=== PATIENT | female | born 1960 | race Caucasian/White ===

== ENCOUNTER → 2016-12-17 | Outpatient (CLI) | payer BC ==
[~2016-12-17] MED LIST: FEOSOL PO
[2016-12-17 17:32] LABS: BASO % 0.4 %; BASO ABS # 0.03 K/uL (0-0.2); COMPLETE YES; EOS % 1.3 %; IG% 0.1 %; LYMPH % 33.4 %; LYMPH ABS # 2.35 K/uL (1.2-3.4); MEAN CELL VOLUME 88.8 fL (80-100); MEAN CORPUSCULAR HEMOGLOBIN 29.1 pg (25-34); MEAN CORPUSCULAR HGB CONC 32.8 g/dl (32-36); MEAN PLATELET VOLUME 12.6 fL (7.4-10.4); MONO % 6.7 %; NEUT % 58.1 %; PLATELET COUNT 205 K/uL (130-400); RED BLOOD COUNT 4.84 M/uL (4.2-5.4); WHITE BLOOD COUNT 7.03 K/uL (4.8-10.8)
[2016-12-17 17:42] LABS: ALT/SGPT 20 U/L (12-78); BLOOD UREA NITROGEN 25 mg/dl (7-18); BUN/CREATININE RATIO 81.6 (10-20); CALCIUM 9.5 mg/dl (8.5-10.1); CARBON DIOXIDE 25 mmol/L (21-32); CHLORIDE 108 mmol/L (98-107); CHOLESTEROL 202 mg/dl (0-200); CREATININE 0.31 mg/dl (0.60-1.20); GLUCOSE 78 mg/dl (70-99); POTASSIUM 3.9 mmol/L (3.5-5.1); SODIUM 141 mmol/L (136-145)
[2016-12-17 17:45] LABS: ALB/GLOB RATIO 0.8 (0.9-2); ALKALINE PHOSPHATASE 104 U/L (45-117); AST/SGOT 21 U/L (15-37); CHOLESTEROL/HDL RATIO 3.9; HDL CHOLESTEROL 52 mg/dl; LDL CHOLESTEROL CALCULATED 129 mg/dl; TRIGLYCERIDES 105 mg/dl (0-150); VERY LOW DENSITY LIPOPROT CALC 21 mg/dl
== END | disposition home or self-care (01) ==
LOC: C.LABPVFM 13:42
PROVIDERS: ATTEND Family Medicine
DX: Z13.220 Encounter for screening for lipoid disorders (principal); Z13.1 Encounter for screening for diabetes mellitus

== ENCOUNTER 2020-12-11 09:55 | Observation (INO) ==
[2020-12-11] MEDS ORDERED: SODIUM CHLORIDE 0.9% 1000ML 1,000 ML IV STA (10:12)
[2020-12-11] MEDS ORDERED: ONDANSETRON INJ 2 MG/ML 2 ML VIAL IV STA (10:12)
--- NOTE | 2020-12-11 10:21 | Emergency Department Note ---
Impression & Plan Hydronephrosis, S/P ureteral stent placement, Left sided abdominal pain, Urinary tract infection ED Provider Note NAME: KAILYN DE ANDA AGE: 60 SEX: F : 1960 ARRIVES VIA: Ambulance INFORMANT: Patient, ED PROVIDER(S): Min Banks DO CHIEF COMPLAINT: Left flank pain HPI: The patient is a 60-year-old female who presented to the emergency department by ambulance for left-sided abdominal pain. The patient was recently diagnosed with a right-sided kidney stone. She does have a stent in her right ureter. She states that she started having left-sided abdominal pain today. She started noticing sharp pain and having difficulty urinating. She notices a little bit of dark urine but no blood in her urine. She is had nausea but no vomiting. She called the ambulance when her pain became severe. She notices no chest pain. She does not notice any difficulty breathing at this time. She has been compliant with all of her usual outpatient medications. Her pain was moderate to severe and only mildly improved at this time. She has not had any recent trauma. The patient is scheduled to see urology in follow-up for stent removal. ROS: See above HPI for pertinent positives & negatives. A total of 10 systems reviewed and were otherwise negative. PAST MEDICAL HISTORY: See Below PAST SURGICAL HISTORY: See Below FAMILY HISTORY: See Below SOCIAL HISTORY: See Below HOME MEDICATIONS: See Below ALLERGIES: See Below VITALS: See Below PHYSICAL EXAMINATION: GENERAL: The patient is awake and alert. The patient is very anxious appearing. EYES: The conjunctivae are clear. The pupils are round and reactive. EARS, NOSE, MOUTH AND THROAT: The nose is without any evidence of any deformity. NECK: The neck is nontender and supple. RESPIRATORY: Normal respiratory effort is noted there is no evidence of wheezing rhonchi or rales CARDIOVASCULAR: Regular rate and rhythm noted there no murmurs rubs or gallops normal S1 normal S2. GASTROINTESTINAL: The abdomen is moderately distended and diffusely tender. There is no specific guarding but pain is significant in the left lower quadra nt. MUSCULOSKELETAL/EXTREMITIES: There is no evidence of gross deformity full range of motion is noted in the hips and shoulders. SKIN: Skin was warm and dry. There is no significant pedal edema. NEUROLOGIC: Patient is awake alert and oriented x3. MEDICAL DECISION MAKING: The patient is a 60-year-old female who presented to the emergency department for an evaluation of left lower quadrant abdominal pain. The patient had worsening pain on the left side. She does have pain with palpation. She was recently diagnosed with a right-sided kidney stone and has a ureteral stent in place. The patient was found to have signs of hydronephrosis on the right. The patient was also found to have signs of hydronephrosis on the left but no ureteral calculus. The patient's urinalysis does appear to be consistent with urine infection. The patient was treated with IV fluids and IV antibiotics. She was also treated with IV pain medication. She was reevaluated multiple times. On subsequent reevaluation she was feeling significantly improved. I discussed the patient's laboratory and radiographic studies with her. I discussed her case with the patient's primary urology group. I also discussed her case with the [facility] hospitalist. Triage Nursing notes reviewed. Prior medical records reviewed Vital Signs: reviewed and remarkable for elevated blood pressure. Differential diagnosis: Renal colic, UTI, appendicitis, diverticulitis, mesenteric ischemia, aortic pathology, infections, inflammatory bowel disease, PUD, biliary pathology, as well as other pathologies. ER treatment provided: See below Diagnostics interpreted by me: ECG: none Cardiac Monitoring: An order was placed for continuous cardiac monitoring. The monitor shows a rate of 80 bpm with sinus rhythm. Laboratory studies: As stated above and show below. Imaging studies: See below Consultation(s): 1330: I discussed this case with M[facility] who is on-call with urology. They will evaluate the patient in consultation. I discussed this case with Dr. Arce who is on-call for the [facility] hospitalist group. 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, cannot bear weight (has had significant deterioration in mobility/+ atrophy over past few years) Ureter, stricture Urinary incontinence Surgical History History of partial hysterectomy History of tubal ligation Family History Brother Colorectal cancer Diabetes Hypertension Father Cardiac disorder Hypertension Prostate cancer Heart disease Kidney stone Sister Diabetes Gallbladder disease Mother Cancer Pancreatic Denies family history of Ovarian cancer Kidney disease Myocardial infarction Breast cancer Social History Smoking Status: Never smoker Second Hand Exposure: No; Hx Alcohol Use: No Hx Substance Use: No Preferred Language: Albanian Communication Ability: Effective Visual Impairment: No Limitations Hearing Ability: Normal [employer]irect [employer] Required: No Beliefs That Will Affect Care: None marital status: current occupational status: retired How many Children do You have: 1 Feels Safe at Home: Yes Assistive Devices: Glasses and Wheelchair Allergies Allergies Allergy/AdvReac Type Severity Reaction Status Date / Time No Known Allergies Allergy Mild Verified 12/11/20 11:15 Home Meds Home Medications Medication Instructions Recorded Confirmed aspirin 81 mg PO QAM PRN 10/30/20 12/11/20 ibuprofen [Advil] 200 mg PO Q6H PRN 12/11/20 12/11/20 Previous Rx's Medication Instructions Recorded wheelchair #1 ea 12/20/18 cephalexin 500 mg PO BID 7 Days #14 cap 12/08/20 phenazopyridine [Pyridium] 200 mg PO Q8H PRN #10 tab 12/08/20 tamsulosin 0.4 mg PO HS #30 cap 12/08/20 Results & Data (ED) Vital Signs Vital Signs - 24 hr 12/11/20 10:12 12/11/20 11:00 12/11/20 11:42 Temperature 36.6 C Temperature Source Oral Pulse Rate 79 Pulse Rate [Apical] 80 81 Pulse Rhythm Regular Pulse Rhythm [Apical] Regular Pulse Strength Normal Respiratory Rate 23 16 14 Respiratory Effort / Characteristics Non-Labored Spontaneous Non-Labored Non-Labored Respiratory Depth Normal Normal Normal Respiratory Pattern Regular Blood Pressure 173/124 H Blood Pressure [Right Arm] 173/124 H 163/96 H Blood Pressure Mean 140 Blood Pressure Mean [Right Arm] 140 118 Blood Pressure Position Lying Pulse Oximetry 97 97 98 Oxygen Delivery Method Room Air Room Air Room Air Sepsis Recent Fever Within 48 Hours No Sepsis New/Unexplained Change in Mental Status N/A Sepsis Action Taken by Nursing No Action Required 12/11/20 12:00 12/11/20 13:00 12/11/20 14:00 Temperature 37 C Temperature Source Oral Pulse Rate Pulse Rate [Apical] 85 76 74 Pulse Rhythm Pulse Rhythm [Apical] Regular Regular Pulse Strength Respiratory Rate 16 14 16 Respiratory Effort / Characteristics Non-Labored Non-Labored Non-Labored Respiratory Depth Normal Normal Normal Respiratory Pattern Blood Pressure Blood Pressure [Right Arm] 163/96 H 156/107 H 171/96 H Blood Pressure Mean Blood Pressure Mean [Right Arm] 118 123 121 Blood Pressure Position Pulse Oximetry 98 98 99 Oxygen Delivery Method Room Air Room Air Room Air Sepsis Recent Fever Within 48 Hours Sepsis New/Unexplained Change in Mental Status Sepsis Action Taken by Nursing 12/11/20 15:00 Temperature Temperature Source Pulse Rate Pulse Rate [Apical] 71 Pulse Rhythm Pulse Rhythm [Apical] Regular Pulse Strength Respiratory Rate 16 Respiratory Effort / Characteristics Non-Labored Respiratory Depth Normal Respiratory Pattern Blood Pressure Blood Pressure [Right Arm] 154/109 H Blood Pressure Mean Blood Pressure Mean [Right Arm] 124 Blood Pressure Position Pulse Oximetry 100 Oxygen Delivery Method Room Air Sepsis Recent Fever Within 48 Hours Sepsis New/Unexplained Change in Mental Status Sepsis Action Taken by [facility] Medications Current Medication List: was personally reviewed by me Laboratory Data Attestation: I reviewed the patient's lab results. Result diagrams: 12/11/20 10:15 12/11/20 10:15 Lab Results 12/11/20 12/11/20 12/11/20 Range/Units 10:15 10:15 12:30 WBC 12.28 H (4.8-10.8) K/uL RBC 4.31 (4.2-5.4) M/uL Hgb 13.0 (12.0-16.0) g/dL Hct 38.4 (37-47) % MCV 89.1 (80-100) fL MCH 30.2 (25-34) pg MCHC 33.9 (32-36) g/dL RDW Std Deviation 42.7 (36.4-46.3) fL RDW Coeff of Casey 13.0 (11.5-14.5) % Plt Count 201 (130-400) K/uL MPV 12.4 H (7.4-10.4) fL Immature Gran % (Auto) 0.5 % Neut % (Auto) 86.4 % Lymph % (Auto) 7.5 % Fountain % (Auto) 5.3 % Eos % (Auto) 0.1 % Baso % (Auto) 0.2 % Neut # (Auto) 10.62 H (1.4-6.5) K/uL Lymph # (Auto) 0.92 L (1.2-3.4) K/uL Fountain # (Auto) 0.65 H (0.11-0.59) K/uL Eos # (Auto) 0.01 (0-0.5) K/uL Baso # (Auto) 0.02 (0-0.2) K/uL Immature Gran # (Auto) 0.06 H (0.00-0.02) K/uL Sodium 138 (136-145) mmol/L Potassium 3.2 L (3.5-5.1) mmol/L Chloride 107 (98-107) mmol/L Carbon Dioxide 24 (21-32) mmol/L Anion Gap 7.0 (3-11) BUN 24 H (7-18) mg/dl Creatinine 0.30 L (0.6-1.2) mg/dl Est Cr Clr Drug Dosing Not Reportable Est GFR ( Amer) 142.2 ml/min Est GFR (Non-Af Amer) 122.7 ml/min BUN/Creatinine Ratio 80.5 H (10-20) Glucose 114 H (70-99) mg/dl Calcium 8.7 (8.5-10.1) mg/dl Total Bilirubin 0.6 (0.2-1) mg/dl AST 25 (15-37) U/L ALT 19 (12-78) U/L Alkaline Phosphatase 98 (45-117) U/L Total Protein 7.4 (6.4-8.2) gm/dl Albumin 3.3 L (3.4-5.0) gm/dl Globulin 4.1 H (2.5-4.0) gm/dl Albumin/Globulin Ratio 0.8 L (0.9-2) Lipase 122 (73-393) U/L Urine Color Moore Urine Appearance Cloudy A (Clear) Urine pH (4.5-7.5) Ur Specific [place] 1.010 (1.000-1.030) Urine Protein (Negative) Urine Glucose (UA) (Negative) Urine Ketones (Negative) Urine Blood (Negative) Urine Nitrite (Negative) Urine Bilirubin (Negative) Urine Urobilinogen (Negative) Ur Leukocyte Esterase (Negative) Urine RBC >30 H (0-4) /hpf Urine WBC >30 H (0-5) /hpf Ur Epithelial Cells 10-20 H (0-5) /lpf Urine Bacteria Negative (Negative) COVID-19 Eval Order SARS-CoV-2 (PCR) (Negative) 12/11/20 12/11/20 Range/Units 13:15 13:15 WBC (4.8-10.8) K/uL RBC (4.2-5.4) M/uL Hgb (12.0-16.0) g/dL Hct (37-47) % MCV (80-100) fL MCH (25-34) pg MCHC (32-36) g/dL RDW Std Deviation (36.4-46.3) fL RDW Coeff of Casey (11.5-14.5) % Plt Count (130-400) K/uL MPV (7.4-10.4) fL Immature Gran % (Auto) % Neut % (Auto) % Lymph % (Auto) % [place] % (Auto) % Eos % (Auto) % Baso % (Auto) % Neut # (Auto) (1.4-6.5) K/uL Lymph # (Auto) (1.2-3.4) K/uL [place] # (Auto) (0.11-0.59) K/uL Eos # (Auto) (0-0.5) K/uL Baso # (Auto) (0-0.2) K/uL Immature Gran # (Auto) (0.00-0.02) K/uL Sodium (136-145) mmol/L Potassium (3.5-5.1) mmol/L Chloride (98-107) mmol/L Carbon Dioxide (21-32) mmol/L Anion Gap (3-11) BUN (7-18) mg/dl Creatinine (0.6-1.2) mg/dl Est Cr Clr Drug Dosing Est GFR ( Amer) ml/min Est GFR (Non-Af Amer) ml/min BUN/Creatinine Ratio (10-20) Glucose (70-99) mg/dl Calcium (8.5-10.1) mg/dl Total Bilirubin (0.2-1) mg/dl AST (15-37) U/L ALT (12-78) U/L Alkaline Phosphatase (45-117) U/L Total Protein (6.4-8.2) gm/dl Albumin (3.4-5.0) gm/dl Globulin (2.5-4.0) gm/dl Albumin/Globulin Ratio (0.9-2) Lipase (73-393) U/L Urine Color Urine Appearance (Clear) Urine pH (4.5-7.5) Ur Specific [place] (1.000-1.030) Urine Protein (Negative) Urine Glucose (UA) (Negative) Urine Ketones (Negative) Urine Blood (Negative) Urine Nitrite (Negative) Urine Bilirubin (Negative) Urine Urobilinogen (Negative) Ur Leukocyte Esterase (Negative) Urine RBC (0-4) /hpf Urine WBC (0-5) /hpf Ur Epithelial Cells (0-5) /lpf Urine Bacteria (Negative) COVID-19 Eval Order Covid19 at [facility] SARS-CoV-2 (PCR) NEGATIVE (Negative) Administered Medications Discontinued Medications Fentanyl Citrate (Fentanyl Citrate 100 Mcg/2 Ml Vial) 50 mcg IV Q15M PRN PRN Reason: Pain Stop: 12/25/20 10:11 Last Admin: 12/11/20 15:42 Dose: 50 mcg Documented by: [id number] Admin: 12/11/20 12:37 Dose: 50 mcg Documented by: [id number] Admin: 12/11/20 10:36 Dose: 50 mcg Documented by: [id number] Sodium Chloride (Nss 1000ml) 1,000 mls @ 999 mls/hr IV .Q1H1M STA Stop: 12/11/20 11:12 Last Infusion: 12/11/20 14:05 Dose: 0 mls/hr Documented by: [id number] Admin: 12/11/20 10:35 Dose: 999 mls/hr Documented by: [id number] Promethazine HCl (Phenergan) 12.5 mg in 50.5 mls @ 202 mls/hr IV NOW STA Stop: 12/11/20 12:44 Last Infusion: 12/11/20 13:12 Dose: 0 mls/hr Documented by: [id number] Admin: 12/11/20 12:38 Dose: 202 mls/hr Documented by: [id number] Ceftriaxone Sodium (Rocephin) 1,000 mg in 50 mls @ 100 mls/hr IV NOW STA Stop: 12/11/20 13:29 Last Infusion: 12/11/20 13:42 Dose: 0 mls/hr Documented by: [id number] Admin: 12/11/20 13:08 Dose: 100 mls/hr Documented by: [id number] Ondansetron HCl (Ondansetron Inj 2 Mg/Ml 2 Ml Vial) 4 mg IV NOW STA Stop: 12/11/20 10:13 Last Admin: 12/11/20 10:36 Dose: 4 mg Documented by: [id number] Potassium Chloride (Potassium Chloride Crtab 20 Meq Tabcr) 40 meq PO NOW STA Stop: 12/11/20 15:09 Last Admin: 12/11/20 15:27 Dose: 40 meq Documented by: [id number] Imaging Data Radiologist's Impression: Abdomen/Pelvis CT 12/11/20 10:21 CT SCAN OF THE ABDOMEN AND PELVIS WITHOUT CONTRAST CLINICAL HISTORY: left flank pain COMPARISON STUDY: 10/30/2020 TECHNIQUE: CT scan of the abdomen and pelvis was performed from the lung bases to the proximal femurs. Images are reviewed in the axial, sagittal, and coronal planes. IV contrast was not administered for this examination. A dose lowering technique was utilized adhering to the principles of ALARA. CT DOSE: 547.71 mGycm FINDINGS: Lower chest: There is mild left basilar atelectasis Liver: The unenhanced liver is normal in size, contour, and attenuation. There is no intrahepatic biliary ductal dilatation. Gallbladder: Cholelithiasis Spleen: Normal in size and attenuation. Pancreas: Unremarkable. Adrenal glands: Unremarkable. Kidneys: There is interval development of left-sided hydronephrosis with left- sided perinephric fluid. There is mild left-sided hydroureter. No obstructing c alculi are visualized. There is persistent right-sided hydronephrosis. There has been interval placement of a double pigtail right-sided nephroureteral stent. No right ureteral calculi are visualized. No bladder calculi are evident. Bowel: There are no transition zones indicate bowel obstruction. There is colonic diverticulosis. There is no evidence of acute appendicitis. There is no evidence of acute diverticulitis Multiple rounded filling defects within the colon, likely represent enteric. Peritoneum: There is no intraperitoneal free air or abdominal ascites. Vasculature: The abdominal aorta is normal in course and caliber. Adenopathy: None. Pelvic viscera: The uterus appears surgically absent. Skeletal structures: There is diffuse muscular atrophy. IMPRESSION: 1. Right-sided hydronephrosis with interval insertion of a right-sided double pigtail nephroureteral stent 2. Interval development of moderate left-sided hydronephrosis and hydroureter with left perinephric fluid. 3. No renal, ureteral, or bladder calculi identified. 4. No evidence of bowel obstruction. No evidence of free air. 5. Cholelithiasis 6. Diffuse muscular atrophy ACT 112: Negative or not required by law. Electronically signed by: Dennis Ricketts M.D. 12/11/2020 11:04 AM Discharge Plan Visit Data Chief Complaint: Abdominal Pain Stated Complaint: AB PAIN ED Provider: Min Banks Discharge Problem: Hydronephrosis, S/P ureteral stent placement, Left sided abdominal pain, Urinary tract infection Patient Disposition: Admitted As Inpatient Condition: Good Discharge Instructions Interventions: ED Discharge Assessment Last Done: 12/11/20 15:49 Discharge Problem: Hydronephrosis Qualifiers: Hydronephrosis type: unspecified Qualified Code(s): N13.30 - Unspecified hydronephrosis Urinary tract infection Qualifiers: Urinary tract infection type: site unspecified Hematuria presence: with hematuria Qualified Code(s): N39.0 - Urinary tract infection, site not specified
[2020-12-11 10:26] LABS: Basophils # (auto) 0.02 K/uL (0-0.2); Basophils % (auto) 0.2 %; Eosinophils # (auto) 0.01 K/uL (0-0.5); Eosinophils % (auto) 0.1 %; Hematocrit (blood only) 38.4 % (37-47); Immature Granulocytes # (auto) 0.06 K/uL (0.00-0.02); Immature Granulocytes % (auto) 0.5 %; Lymphocytes # (auto) 0.92 K/uL (1.2-3.4); Lymphocytes % (auto) 7.5 %; Mean Corpuscular Hemoglobin 30.2 pg (25-34); Mean Corpuscular Hgb Conc 33.9 g/dL (32-36); Mean Corpuscular Volume 89.1 fL (80-100); Mean Platelet Volume 12.4 fL (7.4-10.4); Monocytes # (auto) 0.65 K/uL (0.11-0.59); Monocytes % (auto) 5.3 %; Neutrophils # (auto) 10.62 K/uL (1.4-6.5); Neutrophils % (auto) 86.4 %; Platelet Count 201 K/uL (130-400); RDW Standard Deviation 42.7 fL (36.4-46.3); Red Blood Count 4.31 M/uL (4.2-5.4); White Blood Count 12.28 K/uL (4.8-10.8)
[2020-12-11] MEDS: fentaNYL citrate 100 MCG/2 ML VIAL IV PRN ×3 (10:36→15:42)
[2020-12-11 10:49] LABS: Alanine Aminotransferase 19 U/L (12-78); Albumin Level 3.3 gm/dl (3.4-5.0); Aspartate Aminotransferase 25 U/L (15-37); BUN Creatinine Ratio 80.5 (10-20); Blood Urea Nitrogen 24 mg/dl (7-18); Calcium 8.7 mg/dl (8.5-10.1); Carbon Dioxide 24 mmol/L (21-32); Chloride 107 mmol/L (98-107); Est GFR (African American) 142.2 ml/min; Est GFR (Non-African American) 122.7 ml/min; Glucose 114 mg/dl (70-99); Lipase 122 U/L (73-393); Potassium 3.2 mmol/L (3.5-5.1); Sodium 138 mmol/L (136-145)
[2020-12-11 10:51] LABS: Albumin Globulin Ratio 0.8 (0.9-2); Alkaline Phosphatase 98 U/L (45-117); Bilirubin,Total 0.6 mg/dl (0.2-1); Globulin 4.1 gm/dl (2.5-4.0); Total Protein 7.4 gm/dl (6.4-8.2)
--- NOTE | 2020-12-11 11:05 | CT Scan Report ---
CT SCAN OF THE ABDOMEN AND PELVIS WITHOUT CONTRAST CLINICAL HISTORY: left flank pain COMPARISON STUDY: 10/30/2020 TECHNIQUE: CT scan of the abdomen and pelvis was performed from the lung bases to the proximal femurs . Images are reviewed in the axial, sagittal, and coronal planes. IV contrast was not administered fo r this examination. A dose lowering technique was utilized adhering to the principles of ALARA. CT DOSE: 547.71 mGycm FINDINGS: Lower chest: There is mild left basilar atelectasis Liver: The unenhanced liver is normal in size, contour, and attenuation. There is no intrahepatic yu iary ductal dilatation. Gallbladder: Cholelithiasis Spleen: Normal in size and attenuation. Pancreas: Unremarkable. Adrenal glands: Unremarkable. Kidneys: There is interval development of left-sided hydronephrosis with left-sided perinephric fluid . There is mild left-sided hydroureter. No obstructing calculi are visualized. There is persistent ri ght-sided hydronephrosis. There has been interval placement of a double pigtail right-sided nephroure teral stent. No right ureteral calculi are visualized. No bladder calculi are evident. Bowel: There are no transition zones indicate bowel obstruction. There is colonic diverticulosis. The re is no evidence of acute appendicitis. There is no evidence of acute diverticulitis Multiple rounde d filling defects within the colon, likely represent enteric. Peritoneum: There is no intraperitoneal free air or abdominal ascites. Vasculature: The abdominal aorta is normal in course and caliber. Adenopathy: None. Pelvic viscera: The uterus appears surgically absent. Skeletal structures: There is diffuse muscular atrophy. IMPRESSION: 1. Right-sided hydronephrosis with interval insertion of a right-sided double pigtail nephroureteral stent 2. Interval development of moderate left-sided hydronephrosis and hydroureter with left perinephric f luid. 3. No renal, ureteral, or bladder calculi identified. 4. No evidence of bowel obstruction. No evidence of free air. 5. Cholelithiasis 6. Diffuse muscular atrophy ACT 112: Negative or not required by law. Electronically signed by: Dennis Ricketts M.D. 12/11/2020 11:04 AM
[2020-12-11] MEDS ORDERED: PROMETHAZINE 12.5 MG/50.5 ML BAG IV STA (12:30)
[2020-12-11 12:47] LABS: Appearance Urine Cloudy (Clear); Color Urine Orange
[2020-12-11 12:50] LABS: Bacteria Urine Negative (Negative); RBC Urine >30 /hpf (0-4); WBC Urine >30 /hpf (0-5)
[2020-12-11] MEDS ORDERED: cefTRIAXone SODIUM 1,000 MG/50 ML BAG IV STA (13:00)
--- NOTE | 2020-12-11 14:42 | History & Physical Report ---
Date of Service December 11, 2020 Assessment & Plan (1) Hydronephrosis of left kidney: Interval development since procedure on 12/08- likely with pyelonephritis - Ceftriaxone 2gm IV daily - IVF LR at 100ml/ hour - Continue with Tamsulosin 0.4mg - Continue with antiemetics - Tiered pain control- Toradol 15mg IV q6 prn, Percocet 5/325 q4 prn, morphine for severe pain IV PRN - Purewick for urinary colletcion/monitoring - Urology consult placed Imaging results: 1. Right-sided hydronephrosis with interval insertion of a right-sided double pigtail nephroureteral stent 2. Interval development of moderate left-sided hydronephrosis and hydroureter with left perinephric fluid. 3. No renal, ureteral, or bladder calculi identified. 4. No evidence of bowel obstruction. No evidence of free air. 5. Cholelithiasis 6. 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 Patient was evaluated by Urology in early December 01 for incidental imaging findings with possible obstruction with hydronephrosis and left renal colic with hematuria, the patient underwent a cystoscopy, b ilateral retrograde pyelogram and placement of right ureteral stent, ureteroscopy and right ureteral dilation. Patient recovered from that procedure and was discharged to home with Cephalexin 500mg PO BID, pyridium, and tamsulosin. Patient reports that she originally was feeling well but was awoken this morning around 0330 with sharp constant abdominal pain and the left flank pain. She got up and was unable to void but did have a bout of emesis. She called her friend and due to her pain and abdominal distention she called EMS to bring her to the hospital. In the EMD she was provided pain control and had a CT scan of her abdomen performed. CT of the abdomen reveals interval development of left-sided hydronephrosis with let-sided perinephric fluid and left sided hydroureter. The right sided hydronephrosis remains with stent placement. She also had a UA performed with recent instrumentation and stent, plus pyridium use makes acute interpretation difficult. Patient will be admitte d, with IVF hydration, NPO, Urology consult and IV antibiotics, and tiered pain regimen. Patient has muscular dystrophy and is wheel chair bound, but reports she has had a decline in her functional status over this past year. Allergies Allergy/AdvReac Type Severity Reaction Status Date / Time No Known Allergies Allergy Mild Verified 12/11/20 11:15 Home Medications Medication Instructions Recorded Confirmed Type wheelchair #1 ea 12/20/18 12/11/19 Rx aspirin 81 mg PO QAM PRN 10/30/20 12/11/20 History cephalexin 500 mg PO BID 7 Days #14 cap 12/08/20 12/11/20 Rx phenazopyridine [Pyridium] 200 mg PO Q8H PRN #10 tab 12/08/20 12/11/20 Rx tamsulosin 0.4 mg PO HS #30 cap 12/08/20 12/11/20 Rx ibuprofen [Advil] 200 mg PO Q6H PRN 12/11/20 12/11/20 History 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, cannot bear weight (has had significant deterioration in mobility/+ atrophy over past few years) Ureter, stricture Urinary incontinence Surgical History History of partial hysterectomy History of tubal ligation Family History Brother Colorectal cancer Diabetes Hypertension Father Cardiac disorder Hypertension Prostate cancer Heart disease Kidney stone Sister Diabetes Gallbladder disease Mother Cancer Pancreatic Denies family history of Ovarian cancer Kidney disease Myocardial infarction Breast cancer Social History Smoking Status: Never smoker Second Hand Exposure: No; Hx Alcohol Use: Yes Alcohol type: beer Hx Substance Use: No Preferred Language: Guatemalan Communication Ability: Effective Visual Impairment: No Limitations Hearing Ability: Normal Multimedia Designer Required: No Beliefs That Will Affect Care: None marital status: Current Living Situation: Family Current Living Situation Comment: son is caregiver current occupational status: retired How many Children do You have: 1 Feels Safe at Home: Yes Assistive Devices: Slide Board Review of Systems Review of Systems: REVIEW OF SYSTEMS: Constitutional: (+) fever, chills Eyes: No diplopia, no worsening or blurred vision ENT: normal hearing, no trouble swallowing Respiratory: No cough, sputum, dyspnea at rest or on exertion Cardiovascular: No chest pain, tightness or palpitations Abdomen: (+) pain, nausea, vomiting, (-) diarrhea or constipation Musculoskeletal: No joint pain, calf pain, swelling Neurologic: (+) weakness, wheelchair dependant, muscular dystrophy Psychiatric: No anxiety or depression Skin: No rash or itch Physical Exam Physical Exam: PHYSICAL EXAM: General: awake, alert, no apparent distress Head: Normocephalic, atraumatic ENT: PERRL, EOMI, no pharyngeal exudate, mucous membranes moist Neuro: AAO x 3, speech clear and appropriate, strength intact bilaterally 5/5, sensation intact and equal all extremities and dermatomes, no pronator drift Chest: equal rise and fall of the chest, no accessory muscle use, no heaves or thrills, Clear to auscultation, on room air, Cardiac: Regular rate and rhythm, telemetry reviewed, skin warm dry, cap refill <3 seconds, peripheral pulses +2 no JVD, no murmur, no edema GI: NABS x 4 quadrants, softly distended with tympany to percussion throughout, tender to palpation left>right, no rebound, guarding : Spontaneously voiding, with purewick- dark ileana in color Extremities: Normal inspection, no peripheral edema or erythema, calfs nontender to palpation Psych: Normal mood and affect Skin: no rash or erythema Results & Data Results & Data ([facility]) Vital Signs (Past 12 Hours) Vital Signs Temp Pulse Pulse Resp BP BP Pulse Ox 12/11/20 14:00 74 16 171/96 H 99 12/11/20 13:00 37 C 76 14 156/107 H 98 12/11/20 12:00 85 16 163/96 H 98 12/11/20 11:42 81 14 163/96 H 98 12/11/20 11:00 80 16 173/124 H 97 12/11/20 10:12 36.6 C 79 23 173/124 H 97 Laboratory Results Abnormal lab results 12/11/20 12/11/20 12/11/20 Range/Units 10:15 10:15 12:30 WBC 12.28 H (4.8-10.8) K/uL MPV 12.4 H (7.4-10.4) fL Neut # (Auto) 10.62 H (1.4-6.5) K/uL Lymph # (Auto) 0.92 L (1.2-3.4) K/uL [place] # (Auto) 0.65 H (0.11-0.59) K/uL Immature Gran # (Auto) 0.06 H (0.00-0.02) K/uL Potassium 3.2 L (3.5-5.1) mmol/L BUN 24 H (7-18) mg/dl Creatinine 0.30 L (0.6-1.2) mg/dl BUN/Creatinine Ratio 80.5 H (10-20) Glucose 114 H (70-99) mg/dl Albumin 3.3 L (3.4-5.0) gm/dl Globulin 4.1 H (2.5-4.0) gm/dl Albumin/Globulin Ratio 0.8 L (0.9-2) Urine Appearance Cloudy A (Clear) Urine RBC >30 H (0-4) /hpf Urine WBC >30 H (0-5) /hpf Ur Epithelial Cells 10-20 H (0-5) /lpf Diagnostic Findings Abdomen/Pelvis CT 12/11/20 10:21 CT SCAN OF THE ABDOMEN AND PELVIS WITHOUT CONTRAST CLINICAL HISTORY: left flank pain COMPARISON STUDY: 10/30/2020 TECHNIQUE: CT scan of the abdomen and pelvis was performed from the lung bases to the proximal femurs. Images are reviewed in the axial, sagittal, and coronal planes. IV contrast was not administered for this examination. A dose lowering technique was utilized adhering to the principles of ALARA. CT DOSE: 547.71 mGycm FINDINGS: Lower chest: There is mild left basilar atelectasis Liver: The unenhanced liver is normal in size, contour, and attenuation. There is no intrahepatic biliary ductal dilatation. Gallbladder: Cholelithiasis Spleen: Normal in size and attenuation. Pancreas: Unremarkable. Adrenal glands: Unremarkable. Kidneys: There is interval development of left-sided hydronephrosis with left- sided perinephric fluid. There is mild left-sided hydroureter. No obstructing calculi are visualized. There is persistent right-sided hydronephrosis. There has been interval placement of a double pigtail right-sided nephroureteral stent. No right ureteral calculi are visualized. No bladder calculi are evident. Bowel: There are no transition zones indicate bowel obstruction. There is colonic diverticulosis. There is no evidence of acute appendicitis. There is no evidence of acute diverticulitis Multiple rounded filling defects within the colon, likely represent enteric. Peritoneum: There is no intraperitoneal free air or abdominal ascites. Vasculature: The abdominal aorta is normal in course and caliber. Adenopathy: None. Pelvic viscera: The uterus appears surgically absent. Skeletal structures: There is diffuse muscular atrophy. IMPRESSION: 1. Right-sided hydronephrosis with interval insertion of a right-sided double pigtail nephroureteral stent 2. Interval development of moderate left-sided hydronephrosis and hydroureter with left perinephric fluid. 3. No renal, ureteral, or bladder calculi identified. 4. No evidence of bowel obstruction. No evidence of free air. 5. Cholelithiasis 6. Diffuse muscular atrophy Electronically signed by: Dennis Ricketts M.D. 12/11/2020 11:04 AM Medications Administered Fentanyl Citrate (Fentanyl Citrate 100 Mcg/2 Ml Vial) 50 mcg IV Q15M PRN PRN Reason: Pain Stop: 12/25/20 10:11 Last Admin: 12/11/20 12:37 Dose: 50 mcg Documented by: [id number] Admin: 12/11/20 10:36 Dose: 50 mcg Documented by: [id number] Discontinued Medications Sodium Chloride (Nss 1000ml) 1,000 mls @ 999 mls/hr IV .Q1H1M STA Stop: 12/11/20 11:12 Last Infusion: 12/11/20 14:05 Dose: 0 mls/hr Documented by: [id number] Admin: 12/11/20 10:35 Dose: 999 mls/hr Documented by: [id number] Promethazine HCl (Phenergan) 12.5 mg in 50.5 mls @ 202 mls/hr IV NOW STA Stop: 12/11/20 12:44 Last Infusion: 12/11/20 13:12 Dose: 0 mls/hr Documented by: [id number] Admin: 12/11/20 12:38 Dose: 202 mls/hr Documented by: [id number] Ceftriaxone Sodium (Rocephin) 1,000 mg in 50 mls @ 100 mls/hr IV NOW STA Stop: 12/11/20 13:29 Last Infusion: 12/11/20 13:42 Dose: 0 mls/hr Documented by: [id number] Admin: 12/11/20 13:08 Dose: 100 mls/hr Documented by: [id number] Ondansetron HCl (Ondansetron Inj 2 Mg/Ml 2 Ml Vial) 4 mg IV NOW STA Stop: 12/11/20 10:13 Last Admin: 12/11/20 10:36 Dose: 4 mg Documented by: [id number] ECG Additional Comments: Pending Code Status & VTE Plan Code Status CODE: FULL VTE: SCD's, Heparin 5000 units subq q8 VTE Prophylaxis Plan VTE Prophylaxis will be ordered: Yes Supervising Physician Co-Signing Physician Notes RECOVERY COACH Supervision note: I have personally seen and examined the patient and discussed and verified the hall points of the history and physical along with the plan with KEVIN Krause with the following exceptions and/or additions: Patient presents with significant left-sided flank pain and found to have left- sided moderate hydronephrosis new from previous CT scan 1 month ago and also new from recent retrograde pyelogram and ureteroscopy just 3 days ago. Has had some hematuria but also had a ureteral stent placed 3 days ago. No fevers or chills. Pain is better controlled since admission in the ER with pain medication. History and ROS reviewed as above Vitals reviewed Gen: AAOx3, NAD HEENT: Anicteric sclerae, EOMI CV: RRR no mgr nl S1S2 Pulm: CTAB no wcr Abd: +BS soft mild tenderness palpation in left lower quadrant without guarding or rebound Ext: No edema, 2+ DP pulses Skin: No rashes, warm/dry Neuro: Weakness throughout distal extremities Laboratory values reviewed Imaging reviewed 60-year-old female with history of muscular dystrophy and recent right sided ureteral stricture with stent placement, now with left-sided flank pain and left moderate hydronephrosis with acute pyelonephritis. It is not clear if this is from stone or stricture however stricture seems not likely as she just had ureteroscopy 3 days ago that was normal on the left side. Could be a non- radiopaque stone. Could be from poor bladder drainage Fortunately renal function is normal -Continue antibiotics, IV fluids Pain control Urology consultation appreciated-placed Underwood catheter and reassess with renal ultrasound in the morning PG Care Time/CCT Total # of Minutes Spent Total Time Spent with Patient: Total time spent is greater than 50% in coordination of care (as documented) at patient's floor/unit and/or counseling patient: Coding Level of Care Code 25406 Initial Inpt Care Lvl 3 Diagnoses Hydronephrosis of left kidney N13.30 Hydronephrosis of right kidney N13.30 Pyelonephritis N12 Muscular dystrophy G71.00 Hypokalemia E87.6 S/P ureteral stent placement Z96.0 Abdominal distention R14.0 DVT prophylaxis Z29.9
[2020-12-11] MEDS ORDERED: POTASSIUM CHLORIDE CRTAB 20 MEQ TABCR PO STA (15:08)
--- NOTE | 2020-12-11 15:52 | Urology Consultation ---
Date of Consultation December 11, 2020 Assessment & Plan (1) Hydronephrosis of right kidney: (2) S/P ureteral stent placement: (3) Hydronephrosis of left kidney: 60 year-old female patient with history of muscular dystrophy admitted with intractable left-sided abdominal pain, found to have interval development of left-sided hydronephrosis. - Pt s/p cystoscopy, B/L Retrograde pyelogram, right ureteral stent Insertion, URS, and ureteral dilation 12/08/[address] Vega - Plan of care reviewed with Dr. Vega - Patient afebrile, nontoxic - Labs reviewed - white count mildly elevated at 12.28, creatinine and hemoglobin stable - Urine culture pending, continue antibiotic therapy per primary service - follow cultures - CTAP shows right ureteral stent in good position, interval development of left hydronephrosis - Recommend Underwood catheter to allow decompression and maximum drainage of bladder in the event of reflux - Plan for repeat MITCHELL in AM to reassess left-sided hydronephrosis post catheter insertion - Recommend NPO at midnight. If hydronephrosis persists, will plan for insertion of left-sided ureteral stent - Will continue to follow while inpatient Please consult our service urgently if patient develops fever >101F, intractable pain or nausea, as this will necessitate urgent surgical intervention. Thank you for the consultation and we will continue to monitor closely with primary service. History of Present Illness Reason for Consultation: Hydronephrosis Requesting Physician: Dr. Banks Attending Physician: Dr. Banks History of Present Illness 60 year-old female patient with past medical history of nephrolithiasis, hematuria, and muscular dystrophy presented to the emergency department by ambulance for left-sided abdominal pain. Patient recently underwent cystoscopy, bilateral Retrograde pyelogram, right ureteral stent Insertion, ureteroscopy, and ureteral dilation on December [address] Vega secondary to right-sided hydronephrosis and hematuria. Patient with known left-sided renal colic. Urology consulted for left-sided hydronephrosis. As above, patient known to urology service with recent urologic intervention on 12/[address] Vega. Chart review: Afebrile Wbc 12.28 Hgb 13.0 Creatinine 0.30 Urinalysis with >30 RBC, >30 WBC, negative bacteria Urine culture pending Patient received 1g IV Rocephin in ED Imaging - CT abd/pelvis without contrast - IMPRESSION: 1. Right-sided hydronephrosis with interval insertion of a right-sided double pigtail nephroureteral stent 2. Interval development of moderate left-sided hydronephrosis and hydroureter with left perinephric fluid. 3. No renal, ureteral, or bladder calculi identified. 4. No evidence of bowel obstruction. No evidence of free air. 5. Cholelithiasis 6. Diffuse muscular atrophy Patient seen and examined in ED. Resting on litter, arouses easily to her name. Reports bilateral flank pain radiating to abdomen prior to arrival. Notes generalized abdominal pain at present, greater on left side, but improved since arrival. No fever, chills, nausea or vomiting at present. Female external catheter in place, draining orange urine. She has been taking Pyridium post- operatively. She noted hematuria post procedure, which then cleared. She noted difficulty voiding overnight and this morning. No dysuria, suprapubic or bladder pain. No CP or SOB. No additional concerns today. Allergies Allergy/AdvReac Type Severity Reaction Status Date / Time No Known Allergies Allergy Mild Verified 12/11/20 11:15 Home Medications Medication Instructions Recorded Confirmed Type wheelchair #1 ea 12/20/18 12/11/19 Rx aspirin 81 mg PO QAM PRN 10/30/20 12/11/20 History cephalexin 500 mg PO BID 7 Days #14 cap 12/08/20 12/11/20 Rx phenazopyridine [Pyridium] 200 mg PO Q8H PRN #10 tab 12/08/20 12/11/20 Rx tamsulosin 0.4 mg PO HS #30 cap 12/08/20 12/11/20 Rx ibuprofen [Advil] 200 mg PO Q6H PRN 12/11/20 12/11/20 History Patient History Medical History 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, cannot bear weight (has had significant deterioration in mobility/+ atrophy over past few years) Ureter, stricture Urinary incontinence Surgical History History of partial hysterectomy History of tubal ligation Family History Brother Colorectal cancer Diabetes Hypertension Father Cardiac disorder Hypertension Prostate cancer Heart disease Kidney stone Sister Diabetes Gallbladder disease Mother Cancer Pancreatic Denies family history of Ovarian cancer Kidney disease Myocardial infarction Breast cancer Social History Smoking Status: Never smoker Second Hand Exposure: No; Hx Alcohol Use: No Hx Substance Use: No Preferred Language: Mauritanian Communication Ability: Effective Visual Impairment: No Limitations Hearing Ability: Normal Wood Type Cutter Required: No Beliefs That Will Affect Care: None marital status: current occupational status: retired How many Children do You have: 1 Feels Safe at Home: Yes Assistive Devices: Glasses and Wheelchair Review of Systems Constitutional: as per Subjective / HPI Eyes: no problem reported Respiratory: no dyspnea Cardiovascular: no chest pain Gastrointestinal: as per Subjective / HPI Genitourinary: as per Subjective / HPI Musculoskeletal: as per Subjective / HPI Integumentary: no problem reported Psychiatric: no problem reported Physical Exam Constitutional: well developed and well nourished; no acute distress Respiratory: normal respiratory effort and able to speak in complete sentences; no respiratory distress and no labored breathing Cardiovascular: Extremities: no pedal edema Gastrointestinal (Abdomen): Inspection/Auscultation: abdomen normal to inspection; abdomen not distended Percussion/Palpation: abdomen soft; abdomen nontender and no guarding Musculoskeletal: Head/Neck/Chest: normocephalic and head atraumatic Skin: no rashes, warm and dry Neurologic: awake Psychiatric: Orientation: alert and oriented x 3 Genitourinary: no CVA tenderness Results & Data ([facility]) Vital Signs (Past 12 Hours) Vital Signs Temp Pulse Pulse Resp BP BP Pulse Ox 12/11/20 14:00 74 16 171/96 H 99 12/11/20 13:00 37 C 76 14 156/107 H 98 12/11/20 12:00 85 16 163/96 H 98 12/11/20 11:42 81 14 163/96 H 98 12/11/20 11:00 80 16 173/124 H 97 12/11/20 10:12 36.6 C 79 23 173/124 H 97 PG Care Time/CCT Total # of Minutes Spent Total Time Spent with Patient: Total time spent is greater than 50% in coordination of care (as documented) at patient's floor/unit and/or counseling patient: Coding Level of Care Code 84108 Initial Inpt Care Lvl 3 Diagnoses Hydronephrosis of right kidney N13.30 S/P ureteral stent placement Z96.0 Hydronephrosis of left kidney N13.30
[2020-12-11] MEDS ORDERED: MoRPHine SULFATE 2 MG/ML CARP IV PRN (16:04)
[2020-12-11] MEDS ORDERED: MAGNESIUM HYDROXIDE SUSP 30 ML UDC PO PRN (16:04)
[2020-12-11] MEDS ORDERED: KETOROLAC TROMETHAMINE 15 MG/ML VIAL IV PRN (16:04)
[2020-12-11] MEDS ORDERED: ONDANSETRON INJ 2 MG/ML 2 ML VIAL IV PRN (16:04)
[2020-12-11] MEDS ORDERED: cefTRIAXone SODIUM 1,000 MG in DEXTROSE 5% 50 ML IV ONE (16:30)
--- NOTE | 2020-12-11 17:25 | Ultrasound Report ---
RENAL ULTRASOUND CLINICAL HISTORY: Hydronephrosis COMPARISON STUDY: CT of the abdomen and pelvis December 11, 2020 at 10:52 AM. TECHNIQUE: Sonography of the kidneys and the urinary bladder was performed. FINDINGS: Right kidney measures 11.2 x 5.5 x 7 cm and the left measures 10.4 x 6.2 x 7.9 cm. Mild to moderate bilateral hydronephrosis is similar to CT performed earlier today. Right ureteral stent is n ot well visualized by sonography. Left perinephric fluid is again noted. Left ureteral jet was not vi sualized. Right ureteral jet was identified. No renal calculi are identified. IMPRESSION: Persistent mild to moderate bilateral hydronephrosis, similar to CT performed earlier today. ACT 112: Negative or not required by law. Electronically signed by: Seth Correia M.D. 12/11/2020 5:23 PM
[2020-12-11] MEDS: LACTATED RINGER'S 1,000 ML IV SCH (17:44)
[2020-12-11] MEDS: DOCUSATE SODIUM/SENNA 50/8.6MG TAB PO SCH (20:20)
[2020-12-11] MEDS: TAMSULOSIN HCL 0.4 MG CAP PO SCH (20:20)
[2020-12-11] MEDS: HEPARIN SOD 5,000 UNIT/0.5 ML VIAL SQ SCH (20:20)
[2020-12-12] MEDS: LACTATED RINGER'S 1,000 ML IV SCH ×2 (05:01→17:29)
[2020-12-12] MEDS: HEPARIN SOD 5,000 UNIT/0.5 ML VIAL SQ SCH ×3 (05:01→20:05)
[2020-12-12 07:43] LABS: Basophils # (auto) 0.02 K/uL (0-0.2); Basophils % (auto) 0.3 %; Eosinophils # (auto) 0.09 K/uL (0-0.5); Eosinophils % (auto) 1.4 %; Hematocrit (blood only) 34.2 % (37-47); Hemoglobin 11.5 g/dL (12.0-16.0); Immature Granulocytes # (auto) 0.02 K/uL (0.00-0.02); Immature Granulocytes % (auto) 0.3 %; Lymphocytes # (auto) 1.14 K/uL (1.2-3.4); Lymphocytes % (auto) 17.7 %; Mean Corpuscular Hemoglobin 30.7 pg (25-34); Mean Corpuscular Hgb Conc 33.6 g/dL (32-36); Mean Corpuscular Volume 91.2 fL (80-100); Mean Platelet Volume 12.6 fL (7.4-10.4); Monocytes # (auto) 0.62 K/uL (0.11-0.59); Monocytes % (auto) 9.6 %; Neutrophils # (auto) 4.56 K/uL (1.4-6.5); Neutrophils % (auto) 70.7 %; Platelet Count 146 K/uL (130-400); RDW Coefficient of Variation 13.4 % (11.5-14.5); RDW Standard Deviation 44.8 fL (36.4-46.3); Red Blood Count 3.75 M/uL (4.2-5.4); White Blood Count 6.45 K/uL (4.8-10.8)
[2020-12-12] MEDS: oxyCODONE/ACETAMINOPHEN 5mg/325mg TAB PO PRN ×2 (07:50→17:32)
[2020-12-12] MEDS: DOCUSATE SODIUM/SENNA 50/8.6MG TAB PO SCH ×2 (07:51→20:05)
[2020-12-12 08:30] LABS: BUN Creatinine Ratio 69.5 (10-20); Blood Urea Nitrogen 16 mg/dl (7-18); Calcium 8.5 mg/dl (8.5-10.1); Carbon Dioxide 25 mmol/L (21-32); Chloride 111 mmol/L (98-107); Creatinine Clr Calc Pharmacy 238.6 ml/min; Est GFR (African American) > 150.0 ml/min; Est GFR (Non-African American) 135.9 ml/min; Glucose 86 mg/dl (70-99); Magnesium 1.7 mg/dl (1.8-2.4); Potassium 4.2 mmol/L (3.5-5.1); Sodium 140 mmol/L (136-145)
--- NOTE | 2020-12-12 08:50 | Urology Progress Note ---
Date of Service December 12, 2020 Assessment & Plan (1) Hydronephrosis of right kidney: (2) S/P ureteral stent placement: (3) Hydronephrosis of left kidney: 60 year-old female patient with history of muscular dystrophy admitted with intractable left-sided abdominal pain, found to have interval development of left-sided hydronephrosis. - Case discussed with Dr. Vega, urologist lens and frames prescription clerk - Pt remains afebrile, nontoxic, lab work reviewed - creatinine and WBC stable - UC&S and BCx pending - continue antibiotic therapy per primary team, follow cultures - MITCHELL showing persistent mild to moderate bilateral hydro - no significant change from yesterday - Maintain Underwood catheter for decompression - Given she is afebrile and creatinine stable - no acute intervention planned today - Okay for patient to resume diet - Continue supportive care and management per hospital team - Will continue to follow closely Please consult our service urgently if patient develops fever >101F, intractable pain or nausea, as this will necessitate urgent surgical intervention. Admission and Anticipated Discharge Date Admission Date: December 11, 2020 Subjective Patient seen and examined at bedside this AM. No acute issues overnight. Continues to have intermittent left flank and abdominal discomfort. Pain controlled with PO pain medication. Pt utilized oxycodone/acetaminophen 5-325 mg today @0750. No pain at present. Underwood catheter placed yesterday evening per order. Underwood intact, patent and draining clear yellow urine in tubing, some red-tinged sediment noted. No nausea or vomiting. No fever or chills. Chart review: Afebrile, creatinine 0.22, WBC 6.45, Hgb 11.5, UC&S and BCx pending. On IV Ceftriaxone. No additional concerns today. Review of Systems Constitutional: as per Subjective / HPI Gastrointestinal: as per Subjective / HPI Genitourinary: as per Subjective / HPI Physical Exam Constitutional: well developed and well nourished; no acute distress and not ill appearing Respiratory: normal respiratory effort and able to speak in complete sentences; no respiratory distress and no labored breathing Cardiovascular: Extremities: no pedal edema Gastrointestinal (Abdomen): Inspection/Auscultation: abdomen normal to inspection; abdomen not distended Percussion/Palpation: abdomen soft; abdomen nontender and no guarding Musculoskeletal: Head/Neck/Chest: normocephalic and head atraumatic Skin: no rashes, warm and dry Neurologic: awake Psychiatric: Orientation: alert and oriented x 3 Genitourinary: no CVA tenderness Underwood intact, patent and draining clear yellow urine with small amount of red-tinged sediment noted Results & Data ([facility]) Vital Signs (Past 12 Hours) Vital Signs Temp Pulse Resp BP Pulse Ox 12/12/20 07:29 37.3 C 84 16 137/86 94 12/11/20 22:47 37.2 C 87 16 101/67 95 PG Care Time/CCT Total # of Minutes Spent Total Time Spent with Patient: Total time spent is greater than 50% in coordination of care (as documented) at patient's floor/unit and/or counseling patient: Coding Level of Care Code 82388 Subseq Hosp Care Lvl 2 Diagnoses Hydronephrosis of right kidney N13.30 S/P ureteral stent placement Z96.0 Hydronephrosis of left kidney N13.30
--- NOTE | 2020-12-12 09:23 | Ultrasound Report ---
ULTRASOUND KIDNEYS AND BLADDER CLINICAL HISTORY: Bilateral hydronephrosis post Underwood catheter placement. COMPARISON STUDY: Renal ultrasound and abdominal CT dated 12/11/2020. TECHNIQUE: Real-time, grayscale, and color flow sonography of the kidneys and bladder is performed. I mages are reviewed in the transverse and longitudinal planes. FINDINGS: Kidneys: The kidneys are normal in size and echotexture. The right kidney measures 10.5 x 4.7 x 5.6 c m and the left kidney measures 10.5 x 5.9 x 5.8 cm. A right ureteral stent is in place. There is mild to moderate bilateral hydronephrosis, similar in appearance to yesterday. No shadowing renal calculi are identified. There is no sonographic evidence of contour deforming renal mass lesion. There is a small amount of bilateral perinephric fluid. Bladder: The bladder is decompressed around a Underwood catheter and could not be assessed. IMPRESSION: 1. There is [id number] bilateral hydronephrosis, not significantly changed from yesterday. 2. A right ureteral stent is in place. 3. The bladder was decompressed round a Underwood catheter and could not be evaluated. 4. A small amount of nonspecific perinephric fluid is seen bilaterally. ACT 112: Negative or not required by law. Electronically signed by: Flo Mcgee M.D. 12/12/2020 9:22 AM
--- NOTE | 2020-12-12 10:55 | XRay Report ---
KUB CLINICAL HISTORY: evaluate distention COMPARISON STUDY: CT of the abdomen and pelvis December 11, 2020. FINDINGS: Right ureteral stent is in place. There are no urinary calculi. Right pelvic calcification reflects a phlebolith. Bowel gas pattern is normal. There is a moderate amount stool within the colon . There is no stool within the rectum. IMPRESSION: 1. No evidence for a bowel obstruction. 2. Right ureteral stent in place. ACT 112: Negative or not required by law. Electronically signed by: Seth Correia M.D. 12/12/2020 10:53 AM
[2020-12-12] MEDS ORDERED: MAGNESIUM SULFATE / D5W 1 GM/100 ML BAG IV ONE (12:08)
[2020-12-12] MEDS: cefTRIAXone SODIUM 2,000 MG in DEXTROSE 5% 50 ML IV SCH (13:12)
[2020-12-12] MEDS: TAMSULOSIN HCL 0.4 MG CAP PO SCH (20:05)
--- NOTE | 2020-12-12 23:36 | Hospitalist Progress Note ---
Date of Service December 12, 2020 Assessment & Plan (1) Hydronephrosis of left kidney: Interval development of hydronephrosis/hydroureter since her procedure on 12/08. perinephric fluid present on left as well. cause of the rapid development of left-sided findings? the actual cysto/pyelogram procedure itself? other? does patient have chronic urinary reflux that predisposes?? ? left-sided pyelonephritis ? had leukocytosis at presentation yesterday; now normal. admitting team placed on rocephin IV. urine cx, however, negative; and is eating well, no fever. follow blood cx's. will need to make decision tomorrow about whether to continue antibiotics or stop them. I am not entirely convinced there is kidney infection. appreciate urology consultation and their recs. for now they are going to simply follow this. imaging done today noted. (2) Hydronephrosis of right kidney: 2nd to ureteral stricture as seen on cysto w/ pyelogram on 12/[address] Vega s/p dilatation and stent deployment during that procedure management per urology (3) Ureteral stricture, right: as seen on cysto with pyelogram on 12/[address] Vega s/p dilatation and stent placement at that time stricture -- 2nd to chronic urinary reflux?? other?? defer management to urology (4) Pyelonephritis: ?? on left ?? remains on IV rocephin. urine cx, however, is negative. no fevers, and pain already largely gone. would lean in favor of not treating but defer final decision to urology. 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 eating fine and oral intake does NOT bother the pain. ?pain made worse by movement. denies any prior h/o recurrent UTI. patient feels well; asks when she can go home. Review of Systems Constitutional: no fever, no fatigue and no anorexia Respiratory: no dyspnea Cardiovascular: no chest pain Gastrointestinal: + constipation; no abdominal pain, no nausea and no vomiting Physical Exam Constitutional: no acute distress and no altered mental status ENMT: external ear and nose normal, oropharynx normal Respiratory: normal respiratory effort, lungs clear to auscultation Cardiovascular: Rate/Rhythm: regular rate and regular rhythm Heart Sounds: normal S1 and normal S2 Vessels: posterior tibial pulses present and dorsalis pedis pulses present; no JVD Extremities: no edema Gastrointestinal (Abdomen): Inspection/Auscultation: + abdomen distended (Mild) and normal bowel sounds Percussion/Palpation: abdomen nontender and no hepatosplenomegaly no flank tenderness b/l Musculoskeletal: significant muscle wasting of all 4 extremities, worse in legs Psychiatric: A+Ox3, euthymic affect Results & Data Results & Data ([facility]) Vital Signs (Past 12 Hours) Vital Signs Temp Pulse Resp BP Pulse Ox 12/12/20 15:20 36.8 C 78 16 150/90 H 97 Laboratory Results Laboratory Results - last 24 hr 12/12/20 12/12/20 06:53 06:53 WBC 6.45 RBC 3.75 L Hgb 11.5 L Hct 34.2 L MCV 91.2 MCH 30.7 MCHC 33.6 RDW Std Deviation 44.8 RDW Coeff of Casey 13.4 Plt Count 146 MPV 12.6 H Immature Gran % (Auto) 0.3 Neut % (Auto) 70.7 Lymph % (Auto) 17.7 [place] % (Auto) 9.6 Eos % (Auto) 1.4 Baso % (Auto) 0.3 Neut # (Auto) 4.56 Lymph # (Auto) 1.14 L [place] # (Auto) 0.62 H Eos # (Auto) 0.09 Baso # (Auto) 0.02 Immature Gran # (Auto) 0.02 Sodium 140 Potassium 4.2 D Chloride 111 H Carbon Dioxide 25 Anion Gap 4.0 BUN 16 Creatinine 0.22 L Est Cr Clr Drug Dosing 238.6 Est GFR ( Amer) > 150.0 Est GFR (Non-Af Amer) 135.9 BUN/Creatinine Ratio 69.5 H Glucose 86 Calcium 8.5 Magnesium 1.7 L Diagnostic Findings Microbiology 12/11/20 19:30 Blood Aerobic Blood Culture - Preliminary No growth in Aerobic bottle after 24 hours. 12/11/20 19:30 Blood Anaerobic Blood Culture - Preliminary No growth in Anaerobic bottle after 24 hours. 12/11/20 19:39 Blood Aerobic Blood Culture - Preliminary No growth in Aerobic bottle after 24 hours. 12/11/20 19:39 Blood Anaerobic Blood Culture - Preliminary No growth in Anaerobic bottle after 24 hours. 12/11/20 12:30 Urine,Clean Catch Urine Culture - Preliminary No growth - Less than 1,000 colonies/mL, Final report to follow. PG Care Time/CCT Total # of Minutes Spent Total Time Spent with Patient: Total time spent is greater than 50% in coordination of care (as documented) at patient's floor/unit and/or counseling patient: Coding Level of Care Code 58246 Subseq Hosp Care Lvl 2 Diagnoses Hydronephrosis of left kidney N13.30 Hydronephrosis of right kidney N13.30 Ureteral stricture, right N13.5 Pyelonephritis N12 S/P ureteral stent placement Z96.0 Muscular dystrophy G71.00 Hypokalemia E87.6 Abdominal distention R14.0 Hypomagnesemia E83.42 Paraplegia G82.20 DVT prophylaxis Z29.9
[2020-12-13] MEDS: HEPARIN SOD 5,000 UNIT/0.5 ML VIAL SQ SCH ×2 (05:25→15:33)
[2020-12-13 06:25] LABS: BUN Creatinine Ratio 59.5 (10-20); Calcium 8.3 mg/dl (8.5-10.1); Creatinine Clr Calc Pharmacy 169.3 ml/min; Est GFR (African American) 140.7 ml/min; Est GFR (Non-African American) 121.4 ml/min; Magnesium 1.9 mg/dl (1.8-2.4)
[2020-12-13] MEDS: LACTATED RINGER'S 1,000 ML IV SCH (06:59)
[2020-12-13] MEDS: DOCUSATE SODIUM/SENNA 50/8.6MG TAB PO SCH ×2 (07:35→19:57)
[2020-12-13] MEDS: oxyCODONE/ACETAMINOPHEN 5mg/325mg TAB PO PRN (07:35)
--- NOTE | 2020-12-13 09:22 | Urology Progress Note ---
Date of Service December 13, 2020 Assessment & Plan (1) Hydronephrosis: Overall, seems to be improving uncertain definitive etiology cultures negative - but may be worth continuing oral abx empirically did not have a johnson prior to arrival -I will offer voiding trial now from a standpoint, likely stable for d/c home today (2) Atrophic kidney: Admission and Anticipated Discharge Date Admission Date: December 11, 2020 Subjective gradually improving no fevers or chills overnight intermittent abdominal pain took percocet x1 - but believes she can avoid all narcotics Physical Exam Physical Exam: limited movement of the RUE abd soft no CVA tenderness on the R or L urine with some debris - but largely clear (johnson) Constitutional: well developed and well nourished Respiratory: no respiratory distress Cardiovascular: Extremities: no pedal edema Gastrointestinal (Abdomen): Inspection/Auscultation: abdomen normal to inspection Results & Data ([facility]) Vital Signs (Past 12 Hours) Vital Signs Temp Pulse Resp BP Pulse Ox 12/13/20 07:11 36.5 C 78 16 122/82 97 12/12/20 23:24 37.0 C 74 16 146/94 H 96 PG Care Time/CCT Total # of Minutes Spent Total Time Spent with Patient: Total time spent is greater than 50% in coordination of care (as documented) at patient's floor/unit and/or counseling patient: Coding Level of Care Code 47266 Subseq Hosp Care Lvl 2 Diagnoses Hydronephrosis N13.30 Hydronephrosis type: unspecified Atrophic kidney N26.1 (1) Hydronephrosis Hydronephrosis type: unspecified Qualified Code(s): N13.30 - Unspecified hydronephrosis
--- NOTE | 2020-12-13 09:38 | Hospitalist Progress Note ---
Date of Service December 13, 2020 Assessment & Plan Admission and Anticipated Discharge Date Admission Date: December 11, 2020 Results & Data Results & Data ([facility]) Vital Signs (Past 12 Hours) Vital Signs Temp Pulse Resp BP Pulse Ox 12/13/20 07:11 36.5 C 78 16 122/82 97 12/12/20 23:24 37.0 C 74 16 146/94 H 96 Laboratory Results 12/13/20 Range/Units 05:38 Sodium 137 (136-145) mmol/L Potassium 4.0 (3.5-5.1) mmol/L Chloride 106 (98-107) mmol/L Carbon Dioxide 28 (21-32) mmol/L Anion Gap 3.0 (3-11) BUN 18 (7-18) mg/dl Creatinine 0.31 L (0.6-1.2) mg/dl Est Cr Clr Drug Dosing 169.3 ml/min Est GFR ( Amer) 140.7 ml/min Est GFR (Non-Af Amer) 121.4 ml/min BUN/Creatinine Ratio 59.5 H (10-20) Glucose 100 H (70-99) mg/dl Calcium 8.3 L (8.5-10.1) mg/dl Magnesium 1.9 (1.8-2.4) mg/dl PG Care Time/CCT Total # of Minutes Spent Total Time Spent with Patient: Total time spent is greater than 50% in coordi nation of care (as documented) at patient's floor/unit and/or counseling patient: Coding
[2020-12-13] MEDS: cefTRIAXone SODIUM 2,000 MG in DEXTROSE 5% 50 ML IV SCH (11:18)
--- NOTE | 2020-12-13 12:46 | Discharge Summary ---
Date of Service December 13, 2020 Admission HPI Per Admitting Provider 60 YOF with past medical history of: Muscular dystrophy, wheel chair dependent, lower urinary track symptoms. Patient was evaluated by Urology in early December 01 for incidental imaging findings with possible obstruction with hydronephrosis and left renal colic with hematuria, the patient underwent a cystoscopy, bilateral retrograde pyelogram and placement of right ureteral stent, ureteroscopy and right ureteral dilation. Patient recovered from that procedure and was discharged to home with Cephalexin 500mg PO BID, pyridium, and tamsulosin. Patient reports that she originally was feeling well but was awoken this morning around 0330 with sharp constant abdominal pain and the left flank pain. She got up and was unable to void but did have a bout of emesis. She called her friend and due to her pain and abdominal distention she called EMS to bring her to the hospital. In the EMD she was provided pain control and had a CT scan of her abdomen performed. CT of the abdomen reveals interval development of left-sided hydronephrosis with let-sided perinephric fluid and left sided hydroureter. The right sided hydronephrosis remains with stent placement. She also had a UA performed with recent instrumentation and stent, plus pyridium use makes acute interpretation difficult. Patient will be admitted, with IVF hydration, NPO, Urology consult and IV antibiotics, and tiered pain regimen. Patient has muscular dystrophy and is wheel chair bound, but reports she has had a decline in her functional status over this past year. Admission Exam Per Admitting Provider PHYSICAL EXAM: General: awake, alert, no apparent distress Head: Normocephalic, atraumatic ENT: PERRL, EOMI, no pharyngeal exudate, mucous membranes moist Neuro: AAO x 3, speech clear and appropriate, strength intact bilaterally 5/5, sensation intact and equal all extremities and dermatomes, no pronator drift Chest: equal rise and fall of the chest, no accessory muscle use, no heaves or thrills, Clear to auscultation, on room air, Cardiac: Regular rate and rhythm, telemetry reviewed, skin warm dry, cap refill <3 seconds, peripheral pulses +2 no JVD, no murmur, no edema GI: NABS x 4 quadrants, softly distended with tympany to percussion throughout, tender to palpation left>right, no rebound, guarding : Spontaneously voiding, with purewick- dark ileana in color Extremities: Normal inspection, no peripheral edema or erythema, calfs nontender to palpation Psych: Normal mood and affect Skin: no rash or erythema Principal Diagnosis Hydronephrosis of left kidney, pyelitis Discharge Exam Constitutional no acute distress and no altered mental status Eyes + anicteric sclerae ENMT external ear and nose normal, oropharynx normal Neck trachea midline Respiratory normal respiratory effort, lungs clear to auscultation Cardiovascular Rate/Rhythm: regular rate and regular rhythm Heart Sounds: normal S1 and normal S2 Vessels: posterior tibial pulses present and dorsalis pedis pulses present; no JVD Extremities: no edema Gastrointestinal (Abdomen) Inspection/Auscultation: normal bowel sounds Percussion/Palpation: abdomen nontender and no hepatosplenomegaly Musculoskeletal significant muscle wasting of all extremities, worse in b/l legs wheelchair bound at baseline Skin cool, dry Neurologic awake; not confused Psychiatric A+Ox3, euthymic affect Genitourinary NO ALARCON Discharge Data Allergies Allergy/AdvReac Type Severity Reaction Status Date / Time No Known Allergies Allergy Mild Verified 12/11/20 11:15 Consultations 12/11/20 13:28 Consult Urology Stat 12/11/20 13:57 ED Decision to Admit Stat 12/11/20 16:04 Consult Urology Routine Ordered Studies 12/11/20 10:21 CT abd pelvis wo con Stat 12/11/20 16:04 US renal/blad retro comp Stat 12/12/20 08:30 US renal/blad retro comp Urgent Hospital Course (1) Hydronephrosis of left kidney: Interval development of hydronephrosis/hydroureter since her procedure on 12/08. perinephric fluid present on left as well. cause of the rapid development of left-sided findings? possibly from procedure itself vs urinary reflux predisposing to such? did have leukocytosis on admission which improved but was placed on Rocephin urine culture negative blood cultures remained negative patient remained afebrile continued on Flomax per discussion with urology, decision was made to continue treatment to complete 5 day course with remainder on Cipro as outpatient Will need to have f/u with Urology as outpatient Would recommend following up with her PCP if BPs continue to be elevated as it appears chronically elevated in our system and LVH on most recent ECHO. No CP/SOB (2) Hydronephrosis of right kidney: 2nd to ureteral stricture as seen on cysto w/ pyelogram on 12/[address] Vega s/p dilatation and stent deployment during that procedure management per urology (3) Ureteral stricture, right: as seen on cysto with pyelogram on 12/[address] Vega s/p dilatation and stent placement at that time stricture -- 2nd to chronic urinary reflux?? other?? defer management to urology (4) Pyelonephritis: ?? 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 Discharging with transportation with son this evening. Total Time Total Time Spent Total Time Spent (In Minutes): 60 Discharge Plan Discharge Items Patient Disposition: Home - Self-Care Reason For Visit: Complicated UTI Discharge Diagnosis: Hydronephrosis of Left Kidney, UTI, Ureteral Stricture Condition on Discharge: Good Goals: You have been hospitalized for an acute medical problem. During your stay at [facility], we have made an effort to correct the problem that brought you to the hospital while keeping you as comfortable as possible. Medications were used to bring your condition under control and your discharge instructions will include directions for any medications you should take after leaving the hospital. Please make sure you see your Primary Care Provider as part of your follow up plan. Activity: Resume your previous activity Non-emergency contact: Primary Care Provider and Urologist Call non-emergency contact if: you have any medication questions, your symptoms worsen, your pain is not controlled and you have a fever Follow-up/Referrals: Gee Vega DO [Physician] - Luzmaria Hawkins MD [Primary Care Provider] - Diet: Regular Addtl Attending Provider Instructions: You have been hospitalized for left sided abdominal pain secondary to ureteral stricture that was addressed during surgery but persisted and presented to the emergency department. Imaging showed persistent fluid backup and a Alarcon catheter was placed for decompression. You had this removed and had a voiding trial. Urine culture was negative but given findings, it was discussed with Urology and decision was made to continue antibiotics at discharge to complete a 5 day course with Ciprofloxacin. You already got your dose of medication for today and can begin this tomorrow for another 3 days as follows: Ciprofloxacin 500mg by mouth TWICE daily for total of 6 doses to complete 5 total days (you got two days while in the hospital). You can take Tylenol and ibuprofen for non-severe pain. Oxycodone has been sent for breakthrough pain but you should continue a bowel regimen with Colace twice daily while on this to prevent constipation. Please follow up with Urology as outpatient for further management and to monitor your progress. Also please follow up with your PCP in the next 1-2 weeks to monitor your progress post-discharge. Please return to the emergency department with any fever, chills, increased pain, or for any other symptoms that are concerning for you. It has been a pleasure being a part of the medical team providing for you while you have been in the hospital. Take care! Pending Studies at Discharge: No Stand-Alone Forms: [facility], Opioid Pain Management, Smoking Cessation Medications and DC Order Prescriptions: New sennosides-docusate sodium [Senokot-S] 8.6-50 mg Tablet 1 tab PO BID Qty: 30 RF: 0 oxycodone-acetaminophen [Percocet] 5-325 mg Tablet 1 tab PO Q4H PRN (Reason: pain) Qty: 12 RF: 0 ciprofloxacin HCl 500 mg tablet 500 mg PO BID Qty: 6 RF: 0 Continued (DME) wheelchair device See Dose Instructions .ROUTE .MEDSUPPLY Qty: 1 RF: 0 aspirin 81 mg Tablet,Delayed Release (Dr/Ec) 81 mg PO QAM PRN (Reason: Palpitations) RF: 0 phenazopyridine [Pyridium] 200 mg tablet 200 mg PO Q8H PRN (Reason: pain) Qty: 10 RF: 0 tamsulosin 0.4 mg capsule 0.4 mg PO HS Qty: 30 RF: 0 ibuprofen [Advil] 200 mg Tablet 200 mg PO Q6H PRN (Reason: fever/pain) RF: 0 Discontinued cephalexin 500 mg capsule 500 mg PO BID 7 Days Qty: 14 RF: 0 Discharge Orders: Discharge Order (Routine); Ordered 12/13/20 Ordered By: Mai Carroll Admission Data Admit Date/Time: 12/11/20 15:04 Attending Provider: Rob Montana Admit Provider: Amara Arce Primary Care Provider: Luzmaria Hawkins Other Providers: Gee Vega ; Amara Arce Other Interventions: Discharge Summary Assessment (RN) Last Done: 12/13/20 14:18 Coding Level of Care Code D/C Day Management >30 mins Diagnoses Hydronephrosis of left kidney N13.30 Hydronephrosis of right kidney N13.30 Ureteral stricture, right N13.5 Pyelonephritis N12 S/P ureteral stent placement Z96.0 Muscular dystrophy G71.00 Hypokalemia E87.6 Abdominal distention R14.0 Hypomagnesemia E83.42 Paraplegia G82.20 DVT prophylaxis Z29.9
[2020-12-13] MEDS: TAMSULOSIN HCL 0.4 MG CAP PO SCH (19:57)
--- NOTE | 2020-12-14 06:18 | Electrocardiogram Report ---
Test Reason : Blood Pressure : / mmHG Vent. Rate : 078 BPM Atrial Rate : 078 BPM P-R Int : 156 ms QRS Dur : 080 ms QT Int : 374 ms P-R-T Axes : 068 018 041 degrees QTc Int : 426 ms Normal sinus rhythm Possible Left atrial enlargement Borderline ECG When compared with ECG of 24-NOV-2020 13:07, No significant change was found Confirmed by Masood Collins ([id number]) on 12/14/2020 6:17:44 AM Referred By: REFERRED SELF Confirmed By:Masood Collins
== END 2020-12-13 20:30 | disposition home or self-care (01) ==
LOC: ED 09:55 → 3W 15:04 → INTOOBSV 15:04 → SUATTDRO 15:04 → 3W 15:49

== ENCOUNTER 2023-04-26 09:38 | Inpatient (IN) ==
[~2023-04-26 09:38] MED LIST changes: -FEOSOL PO; +HEPARIN SOD (PORCINE) 1000 UNIT/ML ONE; +TICAGRELOR 90 MG TAB ONE
[2023-04-26] MEDS ORDERED: NITROGLYCERIN SL 0.4 MG/TAB TAB ONE (09:52)
[2023-04-26] MEDS ORDERED: NITROGLYCERIN 0.3 MG/1 TAB 100 TAB BTL SL PRN (09:52)
[2023-04-26] MEDS ORDERED: HEPARIN (PORCINE) 1000 UNIT/ML 10 ML (CATH LAB USE ONLY) ONE (10:04)
[2023-04-26] MEDS ORDERED: niCARdipine HCL INJ 2.5 MG/ML 10 ML AMP ONE (10:04)
[2023-04-26] MEDS ORDERED: fentaNYL citrate PF 100 MCG/2 ML VIAL ONE (10:04)
[2023-04-26] MEDS ORDERED: MIDAZOLAM HCL 1 MG/ML 2ML VIAL ONE (10:04)
[2023-04-26] MEDS ORDERED: NITROGLYCERIN/D5W 100MCG/ML 20ML SYR ONE (10:05)
--- NOTE | 2023-04-26 10:05 | XRay Report ---
XR chest 1V portable HISTORY: 63 years-old Female Chest pain, nonspecific COMPARISON: 11/24/2020 TECHNIQUE: AP view of the chest FINDINGS: Cardiomediastinal and hilar silhouettes are within normal limits. No pneumothorax, pleural effusion o r airspace consolidation. Bones appear grossly intact. IMPRESSION: No acute process. ACT 112: Negative or not required by law. The above report was generated using voice recognition software. It may contain grammatical, syntax o r spelling errors. Electronically signed by: William Starkey M.D. 04/26/2023 10:04 AM
[2023-04-26 10:14] LABS: Albumin Globulin Ratio 1.3 (0.9-2); Albumin Level 4.3 gm/dl (3.4-5.0); BUN Creatinine Ratio 129.6 (10-20); Bilirubin,Total 0.7 mg/dl (0.2-1.0); Calcium 9.6 mg/dl (8.6-10.3); Creatinine Clr Calc Pharmacy 179.4 ml/min; Est GFR (African American) 144.2 ml/min; Est GFR (Non-African American) 124.4 ml/min; Globulin 3.4 gm/dl (2.5-4.0); Magnesium 1.9 mg/dl (1.7-2.4); Potassium 3.1 mmol/L (3.5-5.1); Total Protein 7.7 gm/dl (6.0-8.3)
[2023-04-26 10:17] LABS: Basophils # (auto) 0.03 K/uL (0.00-0.20); Basophils % (auto) 0.2 %; Hematocrit (blood only) 43.4 % (37.0-47.0); Hemoglobin 14.6 g/dl (12.0-16.0); Immature Granulocytes # (auto) 0.12 K/uL (0.01-0.20); Immature Granulocytes % (auto) 0.6 %; Lymphocytes # (auto) 1.29 K/uL (1.20-3.40); Lymphocytes % (auto) 6.5 %; Mean Corpuscular Hemoglobin 30.2 pg (25.0-34.0); Mean Corpuscular Hgb Conc 33.6 g/dL (32.0-36.0); Mean Corpuscular Volume 89.7 fL (80.0-100.0); Mean Platelet Volume 13.4 fL (9.4-12.4); Monocytes # (auto) 1.19 K/uL (0.11-0.59); Neutrophils # (auto) 17.31 K/uL (1.40-6.50); Neutrophils % (auto) 86.7 %; Platelet Count 172 K/uL (130-400); RDW Standard Deviation 39.5 fL (36.4-46.3); Red Blood Count 4.84 M/uL (4.20-5.40); White Blood Count 19.94 K/ul (4.8-10.8)
--- NOTE | 2023-04-26 10:20 | Emergency Department Note ---
Impression & Plan ST elevation, Rhabdomyolysis, Takotsubo cardiomyopathy, Elevated troponin ED Provider Note NAME: KAILYN DE ANDA AGE: 63 SEX: F ARRIVES VIA: Ambulance INFORMANT: Patient ED PROVIDER(S): Ankit Salazar MD CHIEF COMPLAINT: Chest pain PLAN: Disposition: Admit MEDICAL DECISION MAKING: The patient is a pleasant 63-year-old woman with a past medical history of muscular dystrophy wheelchair-bound who presents to the emergency department via EMS for evaluation of ongoing chest pain since last night in the setting of the patient inadvertently bending in her chair where she was unable to sit back up due to her muscular dystrophy and so was bent over at the waist restrained by her wheelchair lapbelt with her chest against her knees for approximately 9 hours from 1 PM to 10 PM until her son returned home from work to help her. She reports shortly after this incident she began to have pain in her chest and also her extremities most prominent in her lower legs where her legs felt numb with dull aching pain. She reports that with her muscular dystrophy her leg strength fluctuates and sometimes cannot move them but then this recovers later. She reports that at this time the weakness is not new but the fact that she cannot feel her legs is new. She reports having repetitive nausea and vomiting with the chest pain. Next EMS arrived and performed an EKG which demonstrated elevations in V1-3, AVL with concern for reciprocal changes inferiorly. They did administer nitroglycerin and aspirin and the patient reported her pain went from an 8 down to a 2/10. I did review the case with EMS on medical command call and upon review of her prior EKG which was different and normal appearing in 2020 heart alert was activated. On arrival emergency department the patient is in no acute distress, afebrile with heart in the 100s and blood pressure 130/100s. 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 There is no ecchymosis of the lower abdomen. There is no significant reproducible chest wall tenderness. EKG in the emergency department demonstrates similar findings though less prominent ST elevation in V2, V3, AvL with reciprocal inferior changes. Chest x-ray was performed and per my personal preliminary interpretation was negative for acute cardiopulmonary process. There is no overt mediastinal widening. Given the confounding circumstances of the patient's presentation in the setting of her muscular dystrophy and being slouched/bent over at the waist for 9+ hours, case was reviewed with interventional cardiology, Dr. Duron. Appreciate consultation and upon his assessment the patient was consented for heart catheterization. The patient did have fluctuating pain in the critical care bay which did improve with nitroglycerin which also improved her blood pressure which would again become elevated. Blood work subsequently resulting with WBC 19.9K, without left shift nonspecific. H/H and platelets within normal limits. Potassium 3.1 electrolytes without significant abnormality otherwise. BUN is elevated at 35 consistent with patient's clinical dry appearance. AST elevated at 68, nonspecific with LFTs otherwise unremarkable. Initial high-sensitivity troponin did result at 5900. BNP was 760. TSH within normal limits. CPK was notably elevated at 1600 in the setting of patient's immobility for approximately 9 hours. IV fluid hydration initially deferred on her initial evaluation which was concerning for STEMI. Per cath report, no occlusive coronary artery disease was identified. Note was made of apical hypokinesis and diagnosis of Takotsubo's cardiomyopathy was made. Further management per inpatient team. Triage Nursing notes reviewed and agree them. Prior/external medical records reviewed Vital Signs: reviewed Differential diagnosis: Cardiac ischemia, aortic dissection, pulmonary embolism, pneumothorax, pneumonia, pericarditis, myocarditis, esophageal rupture, GERD, cholecystitis, pancreatitis, musculoskeletal, as well as other pathologies. ER treatment provided: See below. Diagnostics interpreted by me: ECG: Normal sinus rhythm, 89 bpm, no ectopy, subtle elevation in lead V2, V3, AVL with depressions of lead II, III and aVF. Cardiac Monitoring: An order for continuous cardiac monitoring was placed and demonstrated Normal sinus rhythm, 89 bpm, no ectopy Laboratory studies: See below Imaging studies: See below Consultation(s): Interventional cardiology, Dr. Duron. HPI: The patient is a pleasant 63-year-old woman with a past medical history of muscular dystrophy wheelchair-bound who presents to the emergency department via EMS for evaluation of ongoing chest pain since last night in the setting of the patient inadvertently bending in her chair where she was unable to sit back up due to her muscular dystrophy and so was bent over at the waist restrained by her wheelchair lapbelt with her chest against her knees for approximately 9 hours from 1 PM to 10 PM until her son returned home from work to help her. She reports shortly after this incident she began to have pain in her chest and also her extremities most prominent in her lower legs where her legs felt numb with dull aching pain. She reports that with her muscular dystrophy her leg strength fluctuates and sometimes cannot move them but then this recovers later. She reports that at this time the weakness is not new but the fact that she cannot feel her legs is new. She reports having repetitive nausea and vomiting with the chest pain. Next EMS arrived and performed an EKG which demonstrated elevations in V1 V2 V3 with concern for reciprocal changes inferiorly. They did administer nitroglycerin and aspirin and the patient reported her pain went from an 8 down to a 2/10. I did review the case with EMS on medical command call and upon review of her prior EKG which was different and normal appearing in 2020 heart alert was activated. ROS: See above HPI for pertinent positives & negatives. A total of 10 systems reviewed and were otherwise negative. VITALS:See Below PHYSICAL EXAMINATION: GENERAL: Awake, alert, uncomfortable-appearing, in no distress HENT: Normocephalic, atraumatic. Oropharynx with dry mucous membranes and otherwise unremarkable. EYES: Normal conjunctiva. Sclera non-icteric. NECK: Supple. No nuchal rigidity. FROM. No JVD. RESPIRATORY: Clear to auscultation. CARDIAC: Regular rate, normal rhythm. Extremities warm and well perfused. Pulses equal. ABDOMEN: Soft, non-distended. No tenderness to palpation. No rebound or guarding. No masses. RECTAL: Deferred. MUSCULOSKELETAL: Chest examination reveals no tenderness. The back is symmetrical on inspection without obvious abnormality. There is no CVA tenderness to palpation. No joint edema. LOWER EXTREMITIES: Calves are equal size bilaterally and non-tender. No edema. No discoloration. Compartments are not tense. NEURO: Spastic paresis. SKIN: No rash or jaundice noted. ED COURSE: Critical Care: I have personally spent greater than 35 minutes of critical care time in the direct management of this patient. This includes bedside care, interpretation of diagnostic studies, and testing, discussion with consultants, patient, and family members, and other required patient management activities. This 35 minutes is in excess of all separately billable procedures. 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, cannot bear weight (has had significant deterioration in mobility/+ atrophy over past few years) Surgical History History of tubal ligation History of partial hysterectomy Family History Brother Colorectal cancer Diabetes Hypertension Father Cardiac disorder Hypertension Prostate cancer Heart disease Kidney stone Sister Diabetes Gallbladder disease Mother Cancer Pancreatic Denies family history of Ovarian cancer Kidney disease Myocardial infarction Breast cancer Social History Smoking Status: Never smoker Second Hand Exposure: No; Do You Dip or Chew Tobacco: No; Hx Alcohol Use: No Hx Substance Use: No Preferred Language: [place] Communication Ability: Effective Visual Impairment: No Limitations Hearing Ability: Normal 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 Seatbelt Use: always Sunscreen Use: Yes (sometimes) Assistive Devices: Glasses and Wheelchair Allergies Allergies Allergy/AdvReac Type Severity Reaction Status Date / Time vancomycin AdvReac Intermediate Hives, lip Verified 03/29/23 10:58 swelling Home Meds Home Medications Medication Instructions Recorded Confirmed aspirin 81 mg tablet,delayed 81 mg PO QAM PRN Palpitations 10/30/20 03/29/23 release ibuprofen 200 mg tablet (Advil) 200 mg PO Q6H PRN fever/pain 12/11/20 03/29/23 Previous Rx's Medication Instructions Recorded wheelchair #1 ea 12/20/18 Shoulder Strap for Powered #1 ea 10/01/21 Wheelchair Dx:G71.00; G82.20 miscellaneous medical supply #2 ea 06/29/22 miscellaneous medical supply 1 ea miscellaneous ONCE g82.20, 02/03/23 g71.00 #1 ea Results & Data (ED) Vital Signs Vital Signs - 24 hr 04/26/23 09:38 04/26/23 09:42 04/26/23 09:43 Temperature 36.5 C Temperature Source Oral Pulse Rate 100 H 108 H 99 H Pulse Rate [Apical] Pulse Rate from SpO2 Sensor 99 H Pulse Rhythm Regular Pulse Rhythm [Apical] Pulse Strength [Apical] Respiratory Rate 20 19 Respiratory Effort / Characteristics Non-Labored Spontaneous Respiratory Depth Normal Blood Pressure 137/105 H Blood Pressure [Right Arm] Blood Pressure Mean 115 Blood Pressure Mean [Right Arm] Blood Pressure Position [Right Arm] Pulse Oximetry 98 98 Oxygen Delivery Method Room Air Sepsis Recent Fever Within 48 Hours No Sepsis New/Unexplained Change in Mental Status No Sepsis Action Taken by Nursing No Action Required 04/26/23 09:50 04/26/23 09:52 04/26/23 09:52 Temperature Temperature Source Pulse Rate 86 86 Pulse Rate [Apical] Pulse Rate from SpO2 Sensor 89 87 Pulse Rhythm Pulse Rhythm [Apical] Pulse Strength [Apical] Respiratory Rate 18 20 Respiratory Effort / Characteristics Respiratory Depth Blood Pressure 129/92 129/92 Blood Pressure [Right Arm] Blood Pressure Mean 104 113 Blood Pressure Mean [Right Arm] Blood Pressure Position [Right Arm] Pulse Oximetry 97 96 Oxygen Delivery Method Sepsis Recent Fever Within 48 Hours Sepsis New/Unexplained Change in Mental Status Sepsis Action Taken by Nursing 04/26/23 10:00 04/26/23 10:00 04/26/23 10:05 Temperature Temperature Source Pulse Rate 88 Pulse Rate [Apical] Pulse Rate from SpO2 Sensor 89 Pulse Rhythm Pulse Rhythm [Apical] Pulse Strength [Apical] Respiratory Rate 22 Respiratory Effort / Characteristics Respiratory Depth Blood Pressure 113/85 127/100 Blood Pressure [Right Arm] Blood Pressure Mean 89 106 Blood Pressure Mean [Right Arm] Blood Pressure Position [Right Arm] Pulse Oximetry 94 Oxygen Delivery Method Sepsis Recent Fever Within 48 Hours Sepsis New/Unexplained Change in Mental Status Sepsis Action Taken by Nursing 04/26/23 10:05 04/26/23 10:10 04/26/23 10:11 Temperature Temperature Source Pulse Rate 95 H 92 H Pulse Rate [Apical] Pulse Rate from SpO2 Sensor 93 H Pulse Rhythm Pulse Rhythm [Apical] Pulse Strength [Apical] Respiratory Rate 18 35 H Respiratory Effort / Characteristics Respiratory Depth Blood Pressure Blood Pressure [Right Arm] Blood Pressure Mean Blood Pressure Mean [Right Arm] Blood Pressure Position [Right Arm] Pulse Oximetry 95 Oxygen Delivery Method Room Air Sepsis Recent Fever Within 48 Hours Sepsis New/Unexplained Change in Mental Status Sepsis Action Taken by Nursing 04/26/23 11:00 04/26/23 11:15 Temperature Temperature Source Pulse Rate Pulse Rate [Apical] 80 85 Pulse Rate from SpO2 Sensor Pulse Rhythm Pulse Rhythm [Apical] Regular Regular Pulse Strength [Apical] Normal Normal Respiratory Rate 20 20 Respiratory Effort / Characteristics Non-Labored Non-Labored Respiratory Depth Normal Normal Blood Pressure Blood Pressure [Right Arm] 155/100 H 120/82 Blood Pressure Mean Blood Pressure Mean [Right Arm] 118 94 Blood Pressure Position [Right Arm] Lying Lying Pulse Oximetry 97 98 Oxygen Delivery Method Room Air Room Air Sepsis Recent Fever Within 48 Hours Sepsis New/Unexplained Change in Mental Status Sepsis Action Taken by Nursing Laboratory Data Attestation: I reviewed the patient's lab results. 04/26/23 09:30 04/26/23 09:30 Lab Results 04/26/23 04/26/23 Range/Units 09:30 09:44 WBC 19.94 H (4.8-10.8) K/ul RBC 4.84 (4.20-5.40) M/uL Hgb 14.6 (12.0-16.0) g/dl Hct 43.4 (37.0-47.0) % MCV 89.7 (80.0-100.0) fL MCH 30.2 (25.0-34.0) pg MCHC 33.6 (32.0-36.0) g/dL RDW Std Deviation 39.5 (36.4-46.3) fL RDW Coeff of Casey 12.0 (11.5-14.5) % Plt Count 172 (130-400) K/uL MPV 13.4 H (9.4-12.4) fL Immature Gran % (Auto) 0.6 % Neut % (Auto) 86.7 % Lymph % (Auto) 6.5 % [place] % (Auto) 6.0 % Eos % (Auto) 0.0 % Baso % (Auto) 0.2 % Neut # (Auto) 17.31 H (1.40-6.50) K/uL Lymph # (Auto) 1.29 (1.20-3.40) K/uL [place] # (Auto) 1.19 H (0.11-0.59) K/uL Eos # (Auto) 0.00 (0.00-0.50) K/uL Baso # (Auto) 0.03 (0.00-0.20) K/uL Immature Gran # (Auto) 0.12 (0.01-0.20) K/uL PT 11.3 (9.0-12.0) Seconds INR 1.0 (0.9-1.1) APTT 26.2 (21.0-31.0) Seconds PTT Ratio 0.9 Sodium 139 (136-145) mmol/L Potassium 3.1 L (3.5-5.1) mmol/L Chloride 102 (98-107) mmol/L Carbon Dioxide 22 (21-32) mmol/L Anion Gap 15 H (3-11) BUN 35 H (6-23) mg/dl Creatinine 0.27 L (0.6-1.2) mg/dl Est Cr Clr Drug Dosing 179.4 ml/min Est GFR ( Amer) 144.2 ml/min Est GFR (Non-Af Amer) 124.4 ml/min BUN/Creatinine Ratio 129.6 H (10-20) Glucose 113 H (70-99(Fasting)) mg/dl Calcium 9.6 (8.6-10.3) mg/dl Magnesium 1.9 (1.7-2.4) mg/dl Total Bilirubin 0.7 (0.2-1.0) mg/dl AST 68 H (13-39) U/L ALT 34 (7-52) U/L Alkaline Phosphatase 107 H (34-104) U/L Total Creatine Kinase 1639 H (26-192) U/L Troponin I High Sens 5964.0 H* (0-14) pg/ml B-Natriuretic Peptide 763 H (0-100) pg/ml Total Protein 7.7 (6.0-8.3) gm/dl Albumin 4.3 (3.4-5.0) gm/dl Globulin 3.4 (2.5-4.0) gm/dl Albumin/Globulin Ratio 1.3 (0.9-2) Lipase 8 L (11-82) U/L TSH 1.301 (0.300-4.500) uIu/ml Administered Medications Atorvastatin Calcium (Atorvastatin 40 Mg Tab) 40 mg PO QAM [facility] Stop: 05/26/23 16:00 Last Admin: 04/26/23 16:34 Dose: 40 mg Documented By: LAKIA Potassium Chloride/Sodium Chloride (Normal Saline W/20 Meq Kcl) 20 meq in 1,000 mls @ 100 mls/hr IV .Q10H MARCELA Stop: 04/27/23 12:14 Last Admin: 04/26/23 16:33 Dose: 100 mls/hr Documented By: LAKIA Miscellaneous (Icu Protocol For Hyperglycemia) 1 each N/A ACHS MARCELA Stop: 04/28/23 16:00 Last Admin: 04/26/23 20:25 Dose: Not Given Documented By: Admin: 04/26/23 17:12 Dose: Not Given Documented By: Admin: 04/26/23 16:33 Dose: Not Given Documented By: LAKIA Discontinued Medications Fentanyl Citrate (Fentanyl Citrate Pf 100 Mcg/2 Ml Vial) Confirm Administered Dose 100 mcg .ROUTE .STK-MED ONE Stop: 04/26/23 10:05 Last Increment: 04/26/23 10:31 Dose: 25 mcg Documented By: CRICKET Heparin Sodium (Porcine) (Heparin (Porcine) 1000 Unit/Ml 10 Ml (Director Chemistry Use Only)) Confirm Administered Dose 10,000 units .ROUTE .STK-MED ONE Stop: 04/26/23 10:05 Last Admin: 04/26/23 10:40 Dose: Not Given Documented By: CRICKET Heparin Sodium/Sodium Chloride (Heparin In Nss Infusion 1000 Unit/500 Ml (2 U/Ml) Bag) Confirm Administered Dose 3,000 units IV .STK-MED ONE Stop: 04/26/23 10:05 Last Admin: 04/26/23 10:31 Dose: 3,000 units Documented By: ROCHELLE Sodium Chloride (Nss) 1,000 mls @ 100 mls/hr IV .Q10H MARCELA Stop: 05/26/23 10:59 Last Admin: 04/26/23 19:34 Dose: Not Given Documented By: CHRIS Promethazine HCl 12.5 mg/ (Sodium Chloride) 50.5 mls @ 202 mls/hr IV NOW STA Stop: 04/26/23 13:53 Last Admin: 04/26/23 19:34 Dose: Not Given Documented By: CHRIS Pantoprazole Sodium 40 mg/ (Syringe) 10 mls @ 5 mls/min IV 1400 ONE Stop: 04/26/23 14:01 Last Admin: 04/26/23 16:32 Dose: 5 mls/min Documented By: LAKIA Magnesium Sulfate/Dextrose (Magnesium Sulfate / D5w) 1 gm in 100 mls @ 50 mls/hr IV ONE ONE Stop: 04/26/23 18:20 Last Infusion: 04/26/23 18:36 Dose: Infused Documented By: Admin: 04/26/23 16:36 Dose: 50 mls/hr Documented By: LAKIA Ioversol (Optiray 350) Confirm Administered Dose 1 ml .ROUTE .STK-MED ONE Stop: 04/26/23 10:39 Last Admin: 04/26/23 10:39 Dose: 70 ml Documented By: ROCHELLE Midazolam HCl (Midazolam Hcl 1 Mg/Ml 2ml Vial) Confirm Administered Dose 2 mg .ROUTE .STK-MED ONE Stop: 04/26/23 10:05 Last Increment: 04/26/23 10:32 Dose: 1 mg Documented By: CRICKET Nicardipine HCl (Nicardipine Hcl Inj 2.5 Mg/Ml 10 Ml Amp) Confirm Administered Dose 25 mg .ROUTE .STK-MED ONE Stop: 04/26/23 10:05 Last Admin: 04/26/23 10:32 Dose: 25 mg Documented By: ROCHELLE Nitroglycerin (Nitroglycerin 0.3 Mg/1 Tab 100 Tab Btl) 0.3 mg SL Q5M PRN PRN Reason: Chest Pain Stop: 05/26/23 09:51 Last Admin: 04/26/23 09:54 Dose: 0.3 mg Documented By: ZAKIYA Nitroglycerin (Nitroglycerin Sl 0.4 Mg/Tab Tab) Confirm Administered Dose 0.4 mg .ROUTE .STK-MED ONE Stop: 04/26/23 09:53 Last Admin: 04/26/23 09:54 Dose: Not Given Documented By: ZAKIYA Nitroglycerin/Dextrose (Nitroglycerin/D5w 100mcg/Ml 20ml Syr) Confirm Administered Dose 2,000 mcg .ROUTE .STK-MED ONE Stop: 04/26/23 10:06 Last Admin: 04/26/23 10:32 Dose: 2,000 mcg Documented By: [id number] Ondansetron HCl (Ondansetron Inj 2 Mg/Ml 2 Ml Vial) 4 mg IV NOW STA Stop: 04/26/23 16:20 Last Admin: 04/26/23 16:36 Dose: 4 mg Documented By: CAM Potassium Chloride (Potassium Chloride 10 Meq / 100ml Wtr) Confirm Administered Dose 10 meq IV .STK-MED ONE Stop: 04/26/23 10:45 Last Admin: 04/26/23 14:09 Dose: 10 meq Documented By: MVC Promethazine HCl (Promethazine Hcl 12.5 Mg/10 Ml Udp) 12.5 mg PO NOW STA Stop: 04/26/23 13:48 Last Admin: 04/26/23 14:07 Dose: 12.5 mg Documented By: TAR Promethazine HCl (Promethazine 12.5 Mg/50.5 Ml Nss) Confirm Administered Dose 12.5 mg IV .STK-MED ONE Stop: 04/26/23 13:50 Last Admin: 04/26/23 14:08 Dose: Not Given Documented By: TAR Promethazine HCl (Promethazine Hcl 25 Mg Tab) Confirm Administered Dose 25 mg .ROUTE .STK-MED ONE Stop: 04/26/23 13:55 Last Admin: 04/26/23 14:08 Dose: Not Given Documented By: TAR Imaging Data Radiologist's Impression: Chest X-Ray 04/26/23 09:33 XR chest 1V portable HISTORY: 63 years-old Female Chest pain, nonspecific COMPARISON: 11/24/2020 TECHNIQUE: AP view of the chest FINDINGS: Cardiomediastinal and hilar silhouettes are within normal limits. No pneumothorax, pleural effusion or airspace consolidation. Bones appear grossly intact. IMPRESSION: No acute process. ACT 112: Negative or not required by law. The above report was generated using voice recognition software. It may contain grammatical, syntax or spelling errors. Electronically signed by: William Starkey M.D. 04/26/2023 10:04 AM Discharge Plan Visit Data Chief Complaint: Heart Alert Stated Complaint: CHEST PAIN ED Provider: Ankit Salazar Discharge Problem: ST elevation, Rhabdomyolysis, Takotsubo cardiomyopathy, Elevated troponin Patient Disposition: Admitted As Inpatient Discharge Instructions Interventions: ED Discharge Assessment Last Done: 04/26/23 10:11 Discharge Problem: Rhabdomyolysis Qualifiers: Rhabdomyolysis type: traumatic Encounter type: initial encounter Qualified Code(s): T79.6XXA - Traumatic ischemia of muscle, initial encounter
[2023-04-26 10:28] LABS: Partial Thromboplastin Ratio 0.9; Partial Thromboplastin Time 26.2 Seconds (21.0-31.0); Prothrombin Time 11.3 Seconds (9.0-12.0)
[2023-04-26] MEDS ORDERED: OPTIRAY 350 ONE (10:38)
[2023-04-26] MEDS ORDERED: POTASSIUM CHLORIDE 10 MEQ / 100ML WTR IV ONE (10:44)
--- NOTE | 2023-04-26 10:48 | Pre Anesthesia Assessment ---
Date of Service April 26, 2023 Pre Sedation Assessment Vital Signs Temp Pulse Resp BP Pulse Ox O2 Del Method 04/26/23 10:11 Room Air 04/26/23 10:10 92 H 35 H 04/26/23 10:05 95 H 18 95 04/26/23 10:05 127/100 04/26/23 10:00 88 22 94 04/26/23 10:00 113/85 04/26/23 09:52 129/92 04/26/23 09:52 86 20 96 04/26/23 09:50 86 18 129/92 97 04/26/23 09:43 99 H 04/26/23 09:42 108 H 19 98 04/26/23 09:38 36.5 C 100 H 20 137/105 H 98 Room Air Cardiovascular RRR, no murmur, no edema Respiratory normal respiratory effort, lungs clear to auscultation Pre-Sedation Airway Assessment Smoking Status: Never smoker MALLAMPATI 2 asa 3 Notes The planned sedation has been discussed with the patient. Informed Consent was obtained. I have identified the patient, determined the appropriateness of sedation and have assessed the patient immediately prior to the procedure. All medicine(s) and interventions are by my order.
--- NOTE | 2023-04-26 10:58 | Post Anesthesia Assessment ---
Date of Service April 26, 2023 Post Sedation Assessment Vital Signs Temp Pulse Resp BP Pulse Ox O2 Del Method 04/26/23 10:11 Room Air 04/26/23 10:10 92 H 35 H 04/26/23 10:05 95 H 18 95 04/26/23 10:05 127/100 04/26/23 10:00 88 22 94 04/26/23 10:00 113/85 04/26/23 09:52 129/92 04/26/23 09:52 86 20 96 04/26/23 09:50 86 18 129/92 97 04/26/23 09:43 99 H 04/26/23 09:42 108 H 19 98 04/26/23 09:38 36.5 C 100 H 20 137/105 H 98 Room Air Recovery Score Activity: Moves 4 extremities Respiration: Deep Breath/Cough Circulation: +/-20% PreAnes Value Consciousness: Fully Awake Oxygen Saturation: > 92% On Room Air Discharge Sedation Level of Care: Fast Track Phase II Post Sedation Plan On clinical assessment, the patient appears to have tolerated the sedation without complications. Patient is recovering as anticipated. Patient will continue to be monitored by nursing and may be discharged when sedation discharge criteria are met per below protocol. Upon Completions of procedure up to 15 minutes continue every 5 minute vital signs and the P.A.R. score; then discharge to a Phase I or Fast Track to Phase II per the following guidelines: * Discharge Patient to appropriate Phase II area if PAR is 8 or greater or return to pre- procedure baseline. The post - procedure orders will be as directed. * If PAR score is less than 8 or not return to pre-procedure baseline then patient will follow Phase I monitoring till PAR is reached for Phase II. The Phase I may be done in procedure room or may call to secure a Phase I area. * If naloxone or flumazenil are used for reversal, hold in Phase I for continued monitoring from when last reversal dose was given for a minimum of 60 minutes or longer pending the nurse and/or physician discretion of patient condition before discharge to Phase II. Please call the Sedation Physician to re-evaluate and complete post-note for discharge to Phase II area. Do NOT discharge from procedure sedation or Phase 1 until post- sedation evaluation note is complete by procedure /sedation MD Sedation Discharge Instructions to be given to the patient at discharge to home. [facility] Procedure Codes (Charges) Indication for Procedure Indication for procedure: CHEST PAIN Sedation/Anesthesia Procedure 1: Sedation/Anesthesia: 18930 Mod Sedation by the same physician;Init15 Min Child Age 5 & Up (Initial 12 men, start time 1025, end time 1037) Total Sedation Time (minutes): 12
[2023-04-26] MEDS ORDERED: SODIUM CHLORIDE 0.9% 1,000 ML IV SCH (11:00)
--- NOTE | 2023-04-26 11:06 | Electrocardiogram Report ---
Test Reason : Blood Pressure : / mmHG Vent. Rate : 089 BPM Atrial Rate : 089 BPM P-R Int : 152 ms QRS Dur : 080 ms QT Int : 444 ms P-R-T Axes : 081 061 086 degrees QTc Int : 540 ms Normal sinus rhythm Left atrial enlargement Septal infarct , age undetermined ST depression in Inferior leads , consider ischemia Abnormal ECG When compared with ECG of 12-DEC-2020 15:31, Criteria for Septal infarct is now Present ST now depressed in Inferior leads QT has lengthened Confirmed by Alex Garzon ([id number]) on 04/26/2023 11:06:00 AM Referred By: Confirmed By:Alex Garzon
[2023-04-26] MEDS ORDERED: NITROGLYCERIN SL 0.4 MG/TAB TAB SL PRN (11:12)
--- NOTE | 2023-04-26 11:19 | History & Physical Report ---
Date of Service April 26, 2023 Assessment & Plan (1) Chest pain: Plan: Patient reportedly fell forward in her wheelchair, and was bent at the waist / slumped forward for 9 hours on 04/25 She was unable to sit back up d/t underlying muscular dystrophy She arrived in the ED with chest pain with several episodes of N/V Creatinine kinase 1639 Leukocytosis at 19.94 with a neutrophil predominance UA pending CXR NAF EKG on arrival concerning for V1-V3 elevations with reciprocal inferior lead depressions Patient was taken to the [facility] as a heart alert Admitted to ICU s/p heart cath Per cardiac cath note: wall motion abnormalities consistent with Takotsubo cardiomyopathy MRSA swab pending Started on Atorvastatin 40mg p.o. daily in the setting of cath Last echo in 11/26/20 revealed an LVEF of 55-60%; routine echo was ordered Troponin 5964.0, repeat pending Trend troponin q6h QTc 540 on arrival; caution anti-emetics; phenergan 12.5 mg p.o. as needed Repeat EKG daily A.m. CBC, CMP, Mag, and CK (2) Rhabdomyolysis: Plan: Slumped over x9 hours on 04/25 Total creatinine kinase 1639 Creatinine 0.27 (baseline 0.2) BUN/creatinine ratio 129.6 AST elevated at 68 Albumin WNL at 4.3; monitor for third spacing Continue fluid resuscitation (3) Hypokalemia: Plan: K 3.1 on arrival Patient received K rider 10mEq prior to laboratory technical specialist Ordered NSS + 20mEq x2 Maintain K>4, Mag>2 Repeat CMPs daily (4) Numbness and tingling of left lower extremity: Plan: New onset total numbness in LLE since yesterday 04/25 Patient says that her LLE feels "" Neurovascularly intact on physical exam, with pulses intact in the DP/PT She has no sensation extending from the foot to the left lateral knee Tib/Fib & Ankle X-ray of LLE ordered, pending (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 PRN HS Plan Disposition: Admit to ICU s/p heart cath DNR/DNI AHA diet VTE PPx: SCDs History of Present Illness Chief Complaint: Heart alert Primary Care Provider: Luzmaria Hawkins MD Trinity is a 63-year-old female with PMH of muscular dystrophy, paraplegia, sleep disorder, s/p ureteral stent placement, and nephrolithiasis. She presented as a heart alert on the morning of 04/26. She reportedly fell forward in her wheelchair yesterday and remained "bent in half" for approximately 9 hours from 1332 to 2000. Patient is wheelchair-bound at baseline. She lives with her son (Shaan) who helps take care of her. She developed chest pain and tightness last night. No radiation down the arms. She also notes several episodes of nausea and "liquidy" vomiting; she is unsure if there was any blood in the vomit. She did not take any pain medication at home, but endorses occasionally taking Tylenol and aspirin 81 mg at bedtime for achiness and pains. She was given nitro via EMS en route this morning. EKG on arrival showed new ST depressions in the inferior leads. Patient was immediately taken to the [facility]. Per cardiac cath note, no interventions at the time. No at home oxygen use. No recent sick contacts. Patient is up-to-date on COVID and flu shots. Following cath, the patient endorses bilateral constant neck pain which she rates 3/10. She does not endorse chest pain, but notes chest pressure and difficulty taking deep breaths. She also reports a new onset left leg numbness/tingling and intermittent sharp pains that radiate up from foot to knee. She reports that she twisted her LLE while falling forward yesterday in the wheelchair and might have banged her left ankle on the wheel. Mild tachycardia on arrival with peak at 108 bpm; vitals otherwise stable. ED course: Brilinta 180 mg, Nitrostat 0.4 mg, nitroglycerin/dextrose 2000 mcg, Versed 2 mg, heparin bolus, fentanyl, nicardipine 25 mg ROS: Patient endorses bilateral neck pain, chest pressure, N/V (resolved), diarrhea (on Tuesday 04/24), and new onset left leg numbness/tingling with intermittent sharp pain. Patient denies fever, headache, dizziness, lightheadedness, difficulty swallowing, cough, SOB, abdominal pain, saddle anesthesia, dysuria, burning with urination, or blood in the stool/urine. Social Hx: Patient denies smoking/alcohol use. Discussed code status with the patient: Patient does not have a living will or POA, but stated a desire to be DNI/DNR, and would like her son (Shaan) to be her medical proxy if she could not make a medical decision. Allergies Allergy/AdvReac Type Severity Reaction Status Date / Time vancomycin AdvReac Intermediate Hives, lip Verified 03/29/23 10:58 swelling Home Medications Medication Instructions Recorded Confirmed Type wheelchair #1 ea 12/20/18 03/29/23 Rx aspirin 81 mg tablet,delayed 81 mg PO QAM PRN Palpitations 10/30/20 03/29/23 History release ibuprofen 200 mg tablet (Advil) 200 mg PO Q6H PRN fever/pain 12/11/20 03/29/23 History Shoulder Strap for Powered #1 ea 10/01/21 03/29/23 Rx Wheelchair Dx:G71.00; G82.20 miscellaneous medical supply #2 ea 06/29/22 03/29/23 Rx miscellaneous medical supply 1 ea miscellaneous ONCE g82.20, 02/03/23 03/29/23 Rx g71.00 #1 ea Past Med/Surg History Medical History Urinary incontinence Ureter, stricture 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, cannot bear weight (has had significant deterioration in mobility/+ atrophy over past few years) Surgical History History of tubal ligation History of partial hysterectomy Family History Brother Colorectal cancer Diabetes Hypertension Father Cardiac disorder Hypertension Prostate cancer Heart disease Kidney stone Sister Diabetes Gallbladder disease Mother Cancer Pancreatic Denies family history of Ovarian cancer Kidney disease Myocardial infarction Breast cancer Social History Smoking Status: Never smoker Second Hand Exposure: No; Do You Dip or Chew Tobacco: No; Hx Alcohol Use: No Hx Substance Use: No Preferred Language: Andorran Communication Ability: Effective Visual Impairment: No Limitations Hearing Ability: Normal Ornamental Painter Required: No Beliefs That Will Affect Care: None marital status: Current Living Situation: Family Current Living Situation Comment: son is caregiver current occupational status: retired How many Children do You have: 1 Feels Safe at Home: Yes Childhood Exposure to Second-Hand Smoke: Yes Diet: regular caffeine: Yes Dental Care, Regularly: Yes Physical Activity Frequency Comment: as much as she can with her upper body. Seatbelt Use: always Sunscreen Use: Yes (sometimes) Assistive Devices: None Review of Systems Review of Systems: See HPI above Physical Exam Physical Exam: General: no acute distress; non-toxic appearing; cooperative HEENT: normocephalic, atraumatic; no scleral icterus; PERRLA w/ EOMs intact; m oist mucus membrane; vision and hearing grossly intact Neck: supple; no JVD; no lymphadenopathy; trachea midline Skin: warm, dry without signs of tenting; pallor; no cyanosis; no rashes, bruising, lesions, or erythema noted CV: Chest wall tender to the palpation at the upper right apex; no R clavicular fracture on palpation; RRR; S1/S2 normal; 2/6 systolic murmur auscultated at second ICS MCL; pulses intact and symmetric at radial, DP, and PT Lungs: no acute respiratory distress; symmetrical chest wall expansion; clear breath sounds across all lung bruce w/o adventitious sounds; no wheezing ABD: Soft, NTP; BS present; no rebound/guarding; no ascites; no distention; no bruising or signs of internal bleeding MSK: no tics or fasciculations; no edema noted in the LEs b/l; patient demonstrates ability to wiggle toes in both feet; she exhibits the ability to plantar flex and both ankles, but inability to dorsiflex B/L; pain to passive ROM of dorsiflexion in the LLE; DP, PT intact manually in the feet B/L; scrape on the left lat malleolus Neuro: A&Ox3; normal mood and affect; fluent speech; no focal deficits; no sensation in the LLE extending from the L foot to the left lateral knee Results & Data Results & Data Vital Signs (Past 12 Hours) Vital Signs Temp Pulse Resp BP Pulse Ox O2 Del Method 04/26/23 10:11 Room Air 04/26/23 10:10 92 H 35 H 04/26/23 10:05 95 H 18 95 04/26/23 10:05 127/100 04/26/23 10:00 88 22 94 04/26/23 10:00 113/85 04/26/23 09:52 129/92 04/26/23 09:52 86 20 96 04/26/23 09:50 86 18 129/92 97 04/26/23 09:43 99 H 04/26/23 09:42 108 H 19 98 04/26/23 09:38 36.5 C 100 H 20 137/105 H 98 Room Air Laboratory Results Abnormal lab results 04/26/23 Range/Units 09:30 WBC 19.94 H (4.8-10.8) K/ul MPV 13.4 H (9.4-12.4) fL Neut # (Auto) 17.31 H (1.40-6.50) K/uL [place] # (Auto) 1.19 H (0.11-0.59) K/uL Potassium 3.1 L (3.5-5.1) mmol/L Anion Gap 15 H (3-11) BUN 35 H (6-23) mg/dl Creatinine 0.27 L (0.6-1.2) mg/dl BUN/Creatinine Ratio 129.6 H (10-20) Glucose 113 H (70-99(Fasting)) mg/dl AST 68 H (13-39) U/L Alkaline Phosphatase 107 H (34-104) U/L Total Creatine Kinase 1639 H (26-192) U/L Troponin I High Sens 5964.0 H* (0-14) pg/ml Lipase 8 L (11-82) U/L Diagnostic Findings Chest X-Ray 04/26/23 09:33 XR chest 1V portable HISTORY: 63 years-old Female Chest pain, nonspecific COMPARISON: 11/24/2020 TECHNIQUE: AP view of the chest FINDINGS: Cardiomediastinal and hilar silhouettes are within normal limits. No pneumothorax, pleural effusion or airspace consolidation. Bones appear grossly intact. IMPRESSION: No acute process. ACT 112: Negative or not required by law. The above report was generated using voice recognition software. It may contain grammatical, syntax or spelling errors. Electronically signed by: William Starkey M.D. 04/26/2023 10:04 AM Code Status & VTE Plan Code Status DNR/DNI VTE Prophylaxis Plan VTE Prophylaxis will be ordered: Yes Supervising Physician Co-Signing Physician Notes attending addendum: I have physically seen this patient, have supervised the medical residents activities, and agree with the H&P unless as otherwise noted. Assessment and Plan: Takotsubo's cardiomyopathy/elevated troponin/elevated blood pressure- Patient had presented to the emergency department as a heart alert due to presence of substernal chest pain and anterior changes on EKG Patient was taken emergently to the cardiac [facility] by Dr. Duron. Patient was found to have patent coronary artery vessels, with recommendation to maximize medical therapy Patient was admitted to the ICU, with consults to interventional cardiology Dr. Duron, and blind escort Initial troponin 5964, will follow to peak The patient will be admitted to the ICU for serial cardiac enzymes, serial EKG's, cardiac rhythm monitoring and a 2-D echocardiogram with Dopplers. Symptoms likely brought on by physical/physiologic stress of being trapped forward and leaning forward position in a wheelchair for 9 hours overnight Rhabdomyolysis- MI3665, with AST 68 IV fluids as noted Repeat CBC with differential,CK, magnesium and chemistry profile in a.m. Electrolyte disturbances- Potassium 3.1 and magnesium 1.9 Replace IV supplementation, recheck laboratories in a.m. Leukocytosis- WBC 19.94 with left shift Patient has had history of urinary tract infection and pyelonephritis on 12/13/2020 Follow urinalysis, urine culture sensitivity, treat if needed May be a leukemoid reaction PG Care Time/CCT Total # of Minutes Spent Total Time Spent with Patient: Total time spent is greater than 50% in coordination of care (as documented) at patient's floor/unit and/or counseling patient: C[place] [address] INT INP/OBS CARE 3/75MIN Patient Type Established Medical Decision Making High Complexity Diagnoses Chest pain R07.9 Rhabdomyolysis M62.82 Hypokalemia E87.6 Numbness and tingling of left lower extremity R20.0; R20.2 Muscular dystrophy G71.00 Sleep disorder G47.9
--- NOTE | 2023-04-26 12:10 | Cardiac Catheterization ---
[facility] Data: Logistics Administrator Cardiac Status Clinical evaluation leading to the procedure CAD Presenation: Unstable angina Anginal Classification: CCS IV Heart Failure: No Cardiogenic Shock within 24 Hours: No Cardiac Arrest within 24 Hours: No Imaging Studies Past 6 Months: No Stress Studies Past 6 Months: No Coronary Anatomy Dominant: Left Left Main (% Stenosis): Normal LAD (% Stenosis): Normal D1 (% Stenosis): Normal D2 (% Stenosis): Normal Circumflex (% Stenosis): Normal OM1 (% Stenosis): Ostial (20%) OM2 (% Stenosis): Normal L PL1 (% Stenosis): Normal L PL2 (% Stenosis): Normal RCA (% Stenosis): Normal Left Ventricular Angiography EF (%): 35-40 Wall Motion: Anterior (Akinetic), Apical (Hypokinetic) and Inferior (Akinetic) Mitral Regurgitation: 1+ Diagnostic Physicians Name: Rubén Duron MD, PhD Closure Device Percutaneous Entry Location: Femoral Closure Device: None-Manual Hold Recommendations: Medical Therapy and/or Counseling Cardiac Cath Procedure Full Procedure Date April 26, 2023 Pre-Procedure Diagnosis Pre-Procedure Diagnosis: Acute Coronary Syndrome AUC Score AUC Score: 07 Post-Procedure Diagnosis Post-Procedure Diagnosis: Normal Coronary Arteries and Decreased LV Systolic Function Procedure(s) Performed Procedure(s) Performed: Coronary Angiography, Left Heart Cath, LV Angiography and Ultrasound Guided Vascular Access Parlor Chaperone Rubén Duron MD, PhD Estimated Blood Loss Estimated Blood Loss: 10 mL Medication(s) Medication(s): Fentanyl, Lidocaine 1% and Versed Summary of Findings Brief description: Patient was brought to the cardiac catheterization suite where she was shaved and prepped in a sterile fashion. Sedated using IV Versed and fentanyl. Soft tissues of the right groin were anesthetized using 10 mL of 1% Xylocaine. Using the ultrasound for guidance (image saved), the right femoral artery was accessed and a 6 Yoruba femoral artery sheath was placed. All catheters were advanced and exchanged over a 0.035 J-tip wire. Left coronary angiography in orthogonal views with a 5 Yoruba JL 4 diagnostic catheter. Right coronary angiography in orthogonal views with a 5 Yoruba JR4 diagnostic catheter. Left heart cath and left ventriculogram were performed with a 5 Yoruba pigtail catheter. All catheters were removed. Limited right femoral artery angiography was performed to evaluate for closure. Findings were not favorable, therefore, the femoral artery sheath was removed and hemostasis was obtained using manual compression. Patient remained hemodynamically stable and asymptomatic. She was returned to the recovery area. This ended the case. Coronary angiography findings: NGW-hlgge-eaeavoi vessel bifurcating into LAD and circumflex. No disease. LAD-large caliber and transapical. Provides a small first diagonal followed by a medium to large branching second diagonal. There is no angiographically evident disease in the LAD or its branches. DSr-nfxco-qopgesw and dominant vessel. Travels in the AV groove. First OM is small with ostial 20% stenosis. Then there is a large caliber multi branching OM 2 without disease. The AV groove vessel remains large distally and then provides a large branching posterior lateral and a large PDA. There is no angio graphically evident disease in the circumflex or its branches. RCA-this is small to medium caliber and nondominant. No disease. Left ventriculogram: LVEF-35 to 40% Basal inferior and anterior normal contraction. Mid to distal anterior and inferior are akinetic with the apex being mildly hypokinetic. Wall motion abnormality is consistent with Takotsubo cardiomyopathy. Summary: 1. Normal epicardial coronary arteries 2. Moderate to severe LV systolic dysfunction with wall motion consistent with stress-induced cardiomyopathy 3. Recommend optimize medical therapy for cardiomyopathy (nonischemic). Hemodynamics Rest Ao:: 83/61 mmHg Final Ao: 95/68 mmHg LV: 103/4 mmHg, LVEDP 13 mmHg Recommendations Recommendations: Medical Therapy and/or Counseling Radiation Exposure (mGy) 195 mGy, fluoroscopy time 1.5 minutes Contrast (mls) 70 mL Anesthesia 1 mg IV Versed, 25 mcg IV fentanyl Procedural Complication(s) None Disposition Recovery Room\PACU I attest to the content of the Intraoperative Record and any orders documented therein. Any exceptions are noted below. [facility] [place] Cardiac Catheterization Procedure 1: Cardiovascular Cath Procedures: 37738 Coronaries and LHC (+/-LV) Therapeutic Services & Ancillary Procedure 1: Cardiovascular Tx and Anc Procedures: 56633 Ultrasonic Guidance Vascular Access Moderate Sedation Procedure 1: Sedation/Anesthesia: 49333 Mod Sedation by the same physician;Init15 Min Child Age 5 & Up (Start time 1025, end time 1037) PG Care Time/CCT Total # of Minutes Spent Total Time Spent with Patient: Total time spent is greater than 50% in coordination of care (as documented) at patient's floor/unit and/or counseling patient:
[2023-04-26] MEDS ORDERED: PROMETHAZINE HCL 12.5 MG in SODIUM CHLORIDE 0.9% 50 ML IV STA (13:39)
[2023-04-26] MEDS ORDERED: PROMETHAZINE HCL 12.5 MG/10 ML UDP PO STA (13:47)
[2023-04-26] MEDS ORDERED: PROMETHAZINE 12.5 MG/50.5 ML NSS IV ONE (13:49)
[2023-04-26] MEDS ORDERED: PROMETHAZINE HCL 25 MG TAB ONE (13:54)
[2023-04-26] MEDS ORDERED: PANTOprazole 40 MG in SYRINGE 0 ML IV ONE (14:00)
[2023-04-26 14:48] LABS: Thyroid Stimulating Hormone 1.301 uIu/ml (0.300-4.500)
[2023-04-26] MEDS ORDERED: MELATONIN 3 MG TAB PO PRN (16:01)
[2023-04-26] MEDS ORDERED: ONDANSETRON INJ 2 MG/ML 2 ML VIAL IV STA (16:19)
[2023-04-26] MEDS ORDERED: MAGNESIUM SULFATE / D5W 1 GM/100 ML BAG IV ONE (16:21)
[2023-04-26] MEDS: ICU Protocol for HYPERglycemia SCH ×3 (16:33→20:25)
[2023-04-26] MEDS: NSS + 20MEQ KCL 20 MEQ/1,000 ML BAG IV SCH (16:33)
[2023-04-26] MEDS: ATORVASTATIN 40 MG TAB PO SCH (16:34)
--- NOTE | 2023-04-26 16:53 | Billing Data ---
Date of Service April 26, 2023 Coding Level of Care Code 65402 INT INP/OBS CARE
--- NOTE | 2023-04-26 17:31 | XRay Report ---
XR tibia fibula LT 2V CLINICAL HISTORY: loss of sensation COMPARISON: Left ankle radiographs December 11, 2012. FINDINGS: There is no fracture within the left tibia or fibula. No bony erosions are identified. No osseous lesions are identified. IMPRESSION: No fractures within the left tibia or fibula. No evidence for acute osteomyelitis. ACT 112: Negative or not required by law. Electronically signed by: Seth Correia M.D. 04/26/2023 5:28 PM
--- NOTE | 2023-04-26 17:31 | XRay Report ---
XR ankle LT 2V CLINICAL HISTORY: Loss of LLE sensation COMPARISON: Left ankle radiographs December 11, 2012. FINDINGS: Mild soft tissue swelling is present. There is osteopenia. No acute fracture is identified . No bony erosions are identified. There is mild mid foot osteoarthritis. IMPRESSION: 1. No acute fracture within the left ankle. No evidence for acute osteomyelitis. 2. Osteopenia. 3. Mild diffuse soft tissue swelling. ACT 112: Negative or not required by law. Electronically signed by: Seth Correia M.D. 04/26/2023 5:29 PM
--- NOTE | 2023-04-26 18:14 | XCELERA ---
[id number]
--- NOTE | 2023-04-26 18:44 | Cardiology Consultation ---
Date of Consultation April 26, 2023 Assessment & Plan (1) Chest pain: I think this is a combination of the Takotsubo cardiomyopathy and the fact that she was bent over for 9 hours. Coronary angiography demonstrates this is not secondary to myocardial ischemia. Her chest pain was already significantly improved by the time we went to the [facility]. Treat her for symptom relief. (2) Elevated BP without diagnosis of hypertension: In the [facility] and post cath her blood pressure has been well controlled. Unfortunately, this may cause some problems with trying to initiate appropriate therapy for her Takotsubo. (3) Takotsubo cardiomyopathy: Ideally, patient would be on heart failure indicated beta-yeyo and Entresto. However, her blood pressure may preclude the use of Entresto. I would recommend that we initiate low-dose carvedilol regimen and see how she responds. If her heart rate becomes too slow or her blood pressure drops too low we will have to stop the beta-yeyo. We could then attempt low-dose angiotensin receptor yeyo if needed. Fortunately, the EF appears to be greater than 35% meaning that she does not have significant risk of sudden cardiac and will not require a LifeVest or defibrillator at this point. Plan I will follow History of Present Illness Reason for Consultation: Chest pain, abnormal EKG Attending Physician: Rubén Duron MD, PhD History of Present Illness Pleasant 63-year-old female with muscular dystrophy presented to the emergency department with chest discomfort. She has a history of kidney and bladder disease, hypertension, and is cared for by her son. Patient reports that yesterday after her son left for work she fell and slumped over in her wheelchair and could not sit herself back up. She was in this position for approximately 9 hours and then her son returned home. She was very distressed and had lost sensation in her lower extremities. He was able to sit her up in bed which helped her somewhat. He turned her on her side because she was having some nausea and vomiting. She states she has some mild chest tightness from her neck to just below her breasts. She also had a lot of abdominal discomfort and was nauseated with recurrent vomiting. She stayed in bed overnight but continued with symptoms and in the morning decided to seek medical attention at the hospital. Her EKG was nondiagnostic but concerning for possible ischemic changes. I was asked to see her emergently. Because of her ongoing symptoms we decided on definitive evaluation by coronary angiography. Patient was taken urgently to the cardiac catheterization suite where she underwent diagnostic coronary angiography. This revealed widely patent coronary arteries but the left ventriculogram suggested stress-induced cardiomyopathy. She has subsequently undergone echocardiogram with details in her report. Basically, appears to have Takotsubo cardiomyopathy and no other significant problems. EF 35 to 40%. Patient denies any exertional chest pain, heaviness, or tightness. No shortness of breath, syncope, near syncope, orthopnea, PND, racing heartbeat, palpitations, or edema. Allergies Allergy/AdvReac Type Severity Reaction Status Date / Time vancomycin AdvReac Intermediate Hives, lip Verified 03/29/23 10:58 swelling Home Medications Medication Instructions Recorded Confirmed Type wheelchair #1 ea 12/20/18 03/29/23 Rx aspirin 81 mg tablet,delayed 81 mg PO QAM PRN Palpitations 10/30/20 03/29/23 History release ibuprofen 200 mg tablet (Advil) 200 mg PO Q6H PRN fever/pain 12/11/20 03/29/23 History Shoulder Strap for Powered #1 ea 10/01/21 03/29/23 Rx Wheelchair Dx:G71.00; G82.20 miscellaneous medical supply #2 ea 06/29/22 03/29/23 Rx miscellaneous medical supply 1 ea miscellaneous ONCE g82.20, 02/03/23 03/29/23 Rx g71.00 #1 ea Patient History Medical History Urinary incontinence Ureter, stricture 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, cannot bear weight (has had significant deterioration in mobility/+ atrophy over past few years) Surgical History History of tubal ligation History of partial hysterectomy Family History Brother Colorectal cancer Diabetes Hypertension Father Cardiac disorder Hypertension Prostate cancer Heart disease Kidney stone Sister Diabetes Gallbladder disease Mother Cancer Pancreatic Denies family history of Ovarian cancer Kidney disease Myocardial infarction Breast cancer Social History Smoking Status: Never smoker Second Hand Exposure: No; Do You Dip or Chew Tobacco: No; Hx Alcohol Use: No Hx Substance Use: No Preferred Language: Czech Communication Ability: Effective Visual Impairment: No Limitations Hearing Ability: Normal Patient Services Manager Required: No Beliefs That Will Affect Care: None marital status: Current Living Situation: Family Current Living Situation Comment: lives with son current occupational status: retired How many Children do You have: 1 Feels Safe at Home: Yes Safety Concerns: Feels Safe At This Time Childhood Exposure to Second-Hand Smoke: Yes Diet: regular caffeine: Yes Dental Care, Regularly: Yes Physical Activity Frequency Comment: as much as she can with her upper body. Seatbelt Use: always Sunscreen Use: Yes (sometimes) Assistive Devices: Glasses and Wheelchair Review of Systems Review of Systems: Negative except as per HPI Physical Exam Constitutional: Middle-aged elderly female in no acute distress. Eyes: Extraocular muscles intact. Sclera are anicteric. ENMT: Oral mucosa is pink moist and intact Neck: No JVD or thyromegaly Respiratory: Clear to auscultation bilaterally. No wheezing, rhonchi, or rales. Cardiovascular: Regular rate and rhythm. S4 gallop. No rubs or murmurs appreciated. 2+ distal pulses. Musculoskeletal: Flaccid extremities. Trace bilateral foot edema Neurologic: Cognition is intact. Speech is fluent. Severe generalized weakness. Psychiatric: A+Ox3, euthymic affect (Anxious) Results & Data Vital Signs (Past 12 Hours) Vital Signs Temp Pulse Pulse Resp BP BP Pulse Ox 04/26/23 18:00 97 H 19 99 04/26/23 18:00 104/76 04/26/23 17:30 93 H 18 97 04/26/23 17:19 04/26/23 17:00 82 23 96 04/26/23 17:00 111/73 04/26/23 16:58 04/26/23 16:30 87 33 H 97 04/26/23 16:15 90 18 97 04/26/23 16:01 36.8 C 04/26/23 16:00 84 20 97 04/26/23 16:00 118/81 04/26/23 15:55 84 23 97 04/26/23 15:00 82 20 129/86 96 04/26/23 14:30 81 20 129/84 96 04/26/23 14:15 86 20 126/86 96 04/26/23 14:00 81 20 128/91 96 04/26/23 13:45 83 20 127/97 96 04/26/23 13:30 86 20 136/58 L 96 04/26/23 13:15 80 20 130/88 96 04/26/23 13:00 84 20 137/88 96 04/26/23 12:45 79 20 125/89 96 04/26/23 12:30 76 20 128/90 98 04/26/23 12:15 87 20 135/100 98 04/26/23 12:00 78 20 132/84 98 04/26/23 11:45 90 20 135/100 98 04/26/23 11:30 86 20 115/81 97 04/26/23 11:15 85 20 120/82 98 04/26/23 11:00 80 20 155/100 H 97 04/26/23 10:11 04/26/23 10:10 92 H 35 H 04/26/23 10:05 95 H 18 95 04/26/23 10:05 127/100 04/26/23 10:00 88 22 94 04/26/23 10:00 113/85 04/26/23 09:52 129/92 04/26/23 09:52 86 20 96 04/26/23 09:50 86 18 129/92 97 04/26/23 09:43 99 H 04/26/23 09:42 108 H 19 98 04/26/23 09:38 36.5 C 100 H 20 137/105 H 98 O2 Del Method 04/26/23 18:00 04/26/23 18:00 04/26/23 17:30 Room Air 04/26/23 17:19 Room Air 04/26/23 17:00 04/26/23 17:00 04/26/23 16:58 Room Air 04/26/23 16:30 04/26/23 16:15 04/26/23 16:01 04/26/23 16:00 Room Air 04/26/23 16:00 04/26/23 15:55 04/26/23 15:00 Room Air 04/26/23 14:30 Room Air 04/26/23 14:15 Room Air 04/26/23 14:00 Room Air 04/26/23 13:45 Room Air 04/26/23 13:30 Room Air 04/26/23 13:15 Room Air 04/26/23 13:00 Room Air 04/26/23 12:45 Room Air 04/26/23 12:30 Room Air 04/26/23 12:15 Room Air 04/26/23 12:00 Room Air 04/26/23 11:45 Room Air 04/26/23 11:30 Room Air 04/26/23 11:15 Room Air 04/26/23 11:00 Room Air 04/26/23 10:11 Room Air 04/26/23 10:10 04/26/23 10:05 04/26/23 10:05 04/26/23 10:00 04/26/23 10:00 04/26/23 09:52 04/26/23 09:52 04/26/23 09:50 04/26/23 09:43 04/26/23 09:42 04/26/23 09:38 Room Air PG Care Time/CCT Total # of Minutes Spent Total Time Spent with Patient: Total time spent is greater than 50% in coordination of care (as documented) at patient's floor/unit and/or counseling patient: Critical Care Time: Yes 55 minutes of critical care time were spent in the initial evaluation, examination, review of records, discussion with patient, discussion with the care team, formulation and implementation of a plan of care, and all associated documentation. This time is exclusive of the time spent for the procedure. Coding Level of Care Code 89323 CRITICAL CARE 1ST 30-74M Diagnoses Chest pain R07.9 Elevated BP without diagnosis of hypertension R03.0 Takotsubo cardiomyopathy I51.81 Additional Codes Critical Care Time - Critical Care Time: Yes ([id number]) Time Spent (min) 55
--- NOTE | 2023-04-26 18:46 | Critical Care Consultation ---
Date of Consultation April 26, 2023 Assessment & Plan (1) Takotsubo cardiomyopathy: (2) Rhabdomyolysis: (3) Leukocytosis: Plan 63 year old female wheel chair bound with muscular dystrophy presents with chest pain. Cardiac cath negative but showed depressed EF, suspect takotsubo. Lab significant for leukocytosis. No definitive source of infection, CXR negative. send giron cultures including viral panel. Hold off on antibiotics at this time. monitor WBC. Follow up cardiology recommendation. History of Present Illness Attending Physician: Rubén Duron MD, PhD History of Present Illness 63-year-old female with of muscular dystrophy, paraplegia, wheel chair bound, sleep disorder, s/p ureteral stent placement presented with chest pain. She reportedly fell forward in her wheelchair yesterday and remained "bent in half" for approximately 9 hours from 1332 to 1999. Afterwards she started having chest pain associated with arm numbness. EMS was called this morning. Nitro was given en route and EKG on arrival showed new ST depressions in the inferior leads. Patient was immediately taken to the [facility] which showed clean coronaries but depressed EF 35-40%. The impression was takotsubo cardiomyopathy. She was transferred to the ICU for monitoring. Allergies Allergy/AdvReac Type Severity Reaction Status Date / Time vancomycin AdvReac Intermediate Hives, lip Verified 03/29/23 10:58 swelling Home Medications Medication Instructions Recorded Confirmed Type wheelchair #1 ea 12/20/18 03/29/23 Rx aspirin 81 mg tablet,delayed 81 mg PO QAM PRN Palpitations 10/30/20 03/29/23 History release ibuprofen 200 mg tablet (Advil) 200 mg PO Q6H PRN fever/pain 12/11/20 03/29/23 History Shoulder Strap for Powered #1 ea 10/01/21 03/29/23 Rx Wheelchair Dx:G71.00; G82.20 miscellaneous medical supply #2 ea 06/29/22 03/29/23 Rx miscellaneous medical supply 1 ea miscellaneous ONCE g82.20, 02/03/23 03/29/23 Rx g71.00 #1 ea Patient History Medical History Urinary incontinence Ureter, stricture 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, cannot bear weight (has had significant deterioration in mobility/+ atrophy over past few years) Surgical History History of tubal ligation History of partial hysterectomy Family History Brother Colorectal cancer Diabetes Hypertension Father Cardiac disorder Hypertension Prostate cancer Heart disease Kidney stone Sister Diabetes Gallbladder disease Mother Cancer Pancreatic Denies family history of Ovarian cancer Kidney disease Myocardial infarction Breast cancer Social History Smoking Status: Never smoker Second Hand Exposure: No; Do You Dip or Chew Tobacco: No; Hx Alcohol Use: No Hx Substance Use: No Preferred Language: Mohawk Communication Ability: Effective Visual Impairment: No Limitations Hearing Ability: Normal Sap Portal Architect Required: No Beliefs That Will Affect Care: None marital status: Current Living Situation: Family Current Living Situation Comment: lives with son current occupational status: retired How many Children do You have: 1 Feels Safe at Home: Yes Safety Concerns: Feels Safe At This Time Childhood Exposure to Second-Hand Smoke: Yes Diet: regular caffeine: Yes Dental Care, Regularly: Yes Physical Activity Frequency Comment: as much as she can with her upper body. Seatbelt Use: always Sunscreen Use: Yes (sometimes) Assistive Devices: Glasses and Wheelchair Review of Systems Review of Systems: as per HPI. remainder of ROS is comprehensive and negative. Physical Exam Cardiovascular: Rate/Rhythm: regular rate and regular rhythm Gastrointestinal (Abdomen): Inspection/Auscultation: abdomen normal to inspection Neurologic: CN's II-XI intact bilaterally and awake Results & Data Results & Data Vital Signs (Past 12 Hours) Vital Signs Temp Pulse Pulse Resp BP BP Pulse Ox 04/26/23 18:00 97 H 19 99 04/26/23 18:00 104/76 04/26/23 17:30 93 H 18 97 04/26/23 17:19 04/26/23 17:00 82 23 96 04/26/23 17:00 111/73 04/26/23 16:58 04/26/23 16:30 87 33 H 97 04/26/23 16:15 90 18 97 04/26/23 16:01 36.8 C 04/26/23 16:00 84 20 97 04/26/23 16:00 118/81 04/26/23 15:55 84 23 97 04/26/23 15:00 82 20 129/86 96 04/26/23 14:30 81 20 129/84 96 04/26/23 14:15 86 20 126/86 96 04/26/23 14:00 81 20 128/91 96 04/26/23 13:45 83 20 127/97 96 04/26/23 13:30 86 20 136/58 L 96 04/26/23 13:15 80 20 130/88 96 04/26/23 13:00 84 20 137/88 96 04/26/23 12:45 79 20 125/89 96 04/26/23 12:30 76 20 128/90 98 04/26/23 12:15 87 20 135/100 98 04/26/23 12:00 78 20 132/84 98 04/26/23 11:45 90 20 135/100 98 04/26/23 11:30 86 20 115/81 97 04/26/23 11:15 85 20 120/82 98 04/26/23 11:00 80 20 155/100 H 97 04/26/23 10:11 04/26/23 10:10 92 H 35 H 04/26/23 10:05 95 H 18 95 04/26/23 10:05 127/100 04/26/23 10:00 88 22 94 04/26/23 10:00 113/85 04/26/23 09:52 129/92 04/26/23 09:52 86 20 96 04/26/23 09:50 86 18 129/92 97 04/26/23 09:43 99 H 04/26/23 09:42 108 H 19 98 04/26/23 09:38 36.5 C 100 H 20 137/105 H 98 O2 Del Method 04/26/23 18:00 04/26/23 18:00 04/26/23 17:30 Room Air 04/26/23 17:19 Room Air 04/26/23 17:00 04/26/23 17:00 04/26/23 16:58 Room Air 04/26/23 16:30 04/26/23 16:15 04/26/23 16:01 04/26/23 16:00 Room Air 04/26/23 16:00 04/26/23 15:55 04/26/23 15:00 Room Air 04/26/23 14:30 Room Air 04/26/23 14:15 Room Air 04/26/23 14:00 Room Air 04/26/23 13:45 Room Air 04/26/23 13:30 Room Air 04/26/23 13:15 Room Air 04/26/23 13:00 Room Air 04/26/23 12:45 Room Air 04/26/23 12:30 Room Air 04/26/23 12:15 Room Air 04/26/23 12:00 Room Air 04/26/23 11:45 Room Air 04/26/23 11:30 Room Air 04/26/23 11:15 Room Air 04/26/23 11:00 Room Air 04/26/23 10:11 Room Air 04/26/23 10:10 04/26/23 10:05 04/26/23 10:05 04/26/23 10:00 04/26/23 10:00 04/26/23 09:52 04/26/23 09:52 04/26/23 09:50 04/26/23 09:43 04/26/23 09:42 04/26/23 09:38 Room Air Coding Level of Care Code 97601 IN/OBS CONSULT LVL 4,60M Diagnoses Takotsubo cardiomyopathy I51.81 Non-traumatic rhabdomyolysis M62.82 Rhabdomyolysis type: non-traumatic Leukocytosis, unspecified type D72.829 Leukocytosis type: unspecified (2) Rhabdomyolysis Rhabdomyolysis type: non-traumatic Qualified Code(s): M62.82 - Rhabdomyolysis (3) Leukocytosis Leukocytosis type: unspecified Qualified Code(s): D72.829 - Elevated white blood cell count, unspecified
[2023-04-26] MEDS ORDERED: PROMETHAZINE HCL 12.5 MG in SODIUM CHLORIDE 0.9% 50 ML IV PRN (20:00)
[2023-04-26 20:54] LABS: Appearance Urine Cloudy (Clear); Bacteria Urine Automated Negative (Negative); Bilirubin Urine Negative (Negative); Blood Urine Trace (Negative); Color Urine Yellow; Epithelial Cell Urine Auto >30 /lpf (0-5); Glucose Urine UA Trace (Negative); Ketones Urine 3+ (Negative); Leukocyte Esterase Urine Negative (Negative); Nitrite Urine Negative (Negative); Protein Urine Trace (Negative); Specific Gravity Urine > 1.045 (1.000-1.030); Urobilinogen Urine Negative (Negative); pH Urine 5.5 (4.5-7.5)
[2023-04-26 21:12] LABS: RBC Urine Automated 0-4 /hpf (0-4)
[2023-04-27] MEDS: NSS + 20MEQ KCL 20 MEQ/1,000 ML BAG IV SCH (04:38)
[2023-04-27 05:10] LABS: Basophils # (auto) 0.02 K/uL (0.00-0.20); Basophils % (auto) 0.2 %; Eosinophils # (auto) 0.01 K/uL (0.00-0.50); Eosinophils % (auto) 0.1 %; Hematocrit (blood only) 36.6 % (37.0-47.0); Hemoglobin 12.6 g/dl (12.0-16.0); Immature Granulocytes # (auto) 0.03 K/uL (0.01-0.20); Immature Granulocytes % (auto) 0.3 %; Lymphocytes # (auto) 1.43 K/uL (1.20-3.40); Lymphocytes % (auto) 12.2 %; Mean Corpuscular Hemoglobin 30.1 pg (25.0-34.0); Mean Corpuscular Hgb Conc 34.4 g/dL (32.0-36.0); Mean Corpuscular Volume 87.4 fL (80.0-100.0); Monocytes # (auto) 0.87 K/uL (0.11-0.59); Monocytes % (auto) 7.4 %; Neutrophils # (auto) 9.32 K/uL (1.40-6.50); Neutrophils % (auto) 79.8 %; Platelet Count 148 K/uL (130-400); RDW Coefficient of Variation 12.2 % (11.5-14.5); RDW Standard Deviation 39.4 fL (36.4-46.3); Red Blood Count 4.19 M/uL (4.20-5.40); White Blood Count 11.68 K/ul (4.8-10.8)
[2023-04-27 05:28] LABS: Albumin Globulin Ratio 1.1 (0.9-2); Albumin Level 3.2 gm/dl (3.4-5.0); BUN Creatinine Ratio 77.8 (10-20); Bilirubin,Total 0.8 mg/dl (0.2-1.0); Calcium 8.7 mg/dl (8.6-10.3); Est GFR (African American) 144.2 ml/min; Est GFR (Non-African American) 124.4 ml/min; Globulin 2.8 gm/dl (2.5-4.0); Magnesium 1.9 mg/dl (1.7-2.4); Potassium 3.6 mmol/L (3.5-5.1)
[2023-04-27 05:41] LABS: Troponin I High Sensitivity 2813.2 pg/ml (0-14)
[2023-04-27 05:59] LABS: Adenovirus PCR Not Detected (NotDetected); Bordetella parapertussis PCR Not Detected (NotDetected); Bordetella pertussis PCR Not Detected (NotDetected); Chlamydia pneumoniae PCR Not Detected (NotDetected); Coronavirus 229E PCR Not Detected (NotDetected); Coronavirus CoV-2 (COVID19)PCR Not Detected (NotDetected); Coronavirus HKU1 PCR Not Detected (NotDetected); Coronavirus NL63 PCR Not Detected (NotDetected); Coronavirus OC43PCR Not Detected (NotDetected); Human Metapneumovirus PCR Not Detected (NotDetected); Influenza A PCR Not Detected (NotDetected); Influenza B PCR Not Detected (NotDetected); Mycoplasma pneumoniae PCR Not Detected (NotDetected); Parainfluenza Virus 1 PCR Not Detected (NotDetected); Parainfluenza Virus 2 PCR Not Detected (NotDetected); Parainfluenza Virus 3 PCR Not Detected (NotDetected); Parainfluenza Virus 4 PCR Not Detected (NotDetected); Respiratory Syncytial VirusPCR Not Detected (NotDetected); Rhinovirus/Enterovirus PCR Not Detected (NotDetected)
[2023-04-27] MEDS: ICU Protocol for HYPERglycemia SCH ×2 (08:42→12:05)
--- NOTE | 2023-04-27 08:53 | Hospitalist Progress Note ---
Date of Service April 27, 2023 Assessment & Plan (1) Chest pain: Plan: Patient reportedly fell forward in her wheelchair, and was bent at the waist / slumped forward for 9 hours on 04/25 She was unable to sit back up d/t underlying muscular dystrophy She arrived in the ED with chest pain with several episodes of N/V Creatinine kinase 1639 Leukocytosis at 19.94 with a neutrophil predominance, urine cx with polymicrobial growth, repeat, EKG on arrival concerning for V1-V3 elevations with reciprocal inferior lead depressions Patient was taken to the Advanced Registered Nurse as a heart alert Per cardiac cath note: wall motion abnormalities consistent with Takotsubo cardiomyopathy Troponin 5964.0, [id number] QTc 540 on arrival; caution anti-emetics; phenergan 12.5 mg p.o. as needed lower blood pressure trying to initial metoprolol 04/27/23, since no CAD will n ot need atorvastatin, ideally will start dixon i or arb (2) Rhabdomyolysis: Plan: Slumped over x9 hours on 04/25 Total creatinine kinase 1639-849 Continue fluid resuscitation (3) Hypokalemia: Plan: replete and follow magnesium (4) Numbness and tingling of left lower extremity: Plan: New onset total numbness in LLE since yesterday 04/25 Patient says that her LLE feels "" Neurovascularly intact on physical exam, with pulses intact in the DP/PT She has no sensation extending from the foot to the left lateral knee Tib/Fib & Ankle X-ray of LLE ordered,negative for fractute, question if from position, no clinical suspicion of compartment syndrome (5) Muscular dystrophy: Plan: Limb-Girdle muscular dystrophy Patient is wheelchair-bound at baseline Acquired paraplegic; secondary to MD Plan DNR/DNI AHA diet VTE PPx: SCDs Admission and Anticipated Discharge Date Admission Date: April 26, 2023 Subjective pt is feeling improved, she has injuries to knuckles and persistent left lower leg paresthesias and mild weakness Likey from compression Physical Exam Physical Exam: awake and alert, has baseline muscular dystrophy cardiac is regular lungs are clear left leg is with paresthesia, has no clinical concerns of compartment syndrome Results & Data Results & Data Vital Signs (Past 12 Hours) Vital Signs Temp Pulse Resp BP Pulse Ox 04/27/23 07:00 79 20 97 04/27/23 07:00 92/66 L 04/27/23 06:00 88/68 L 04/27/23 06:00 81 17 95 04/27/23 05:00 93/63 L 04/27/23 05:00 83 23 95 04/27/23 04:00 98.6 F 04/27/23 04:00 82 16 95 04/27/23 04:00 90/61 L 04/27/23 03:00 94/68 L 04/27/23 03:00 80 17 96 04/27/23 02:00 83 20 95 04/27/23 02:00 84/60 L 04/27/23 01:00 81 19 95 04/27/23 01:00 90/61 L 04/27/23 00:00 98.6 F 04/27/23 00:00 83 21 94 04/27/23 00:00 82/59 L 04/27/23 00:00 80 04/26/23 23:00 84 18 94 04/26/23 23:00 90/63 L 04/26/23 22:00 81 19 95 04/26/23 22:00 91/61 L 04/26/23 21:00 80 23 97 04/26/23 21:00 94/65 L Laboratory Results reiewed cbc reviewed chemistry PG Care Time/CCT Total # of Minutes Spent Total Time Spent with Patient: Total time spent is greater than 50% in coordination of care (as documented) at patient's floor/unit and/or counseling patient: Coding Level of Care Code 35178 SUB INP/OBS CARE 2/35MIN Diagnoses Chest pain R07.9 Non-traumatic rhabdomyolysis M62.82 Rhabdomyolysis type: non-traumatic Hypokalemia E87.6 Numbness and tingling of left lower extremity R20.0; R20.2 Muscular dystrophy G71.00 (2) Rhabdomyolysis Rhabdomyolysis type: non-traumatic Qualified Code(s): M62.82 - Rhabdomyolysis
[2023-04-27] MEDS: ASPIRIN 81 MG ECTAB PO SCH (09:16)
[2023-04-27] MEDS: ATORVASTATIN 40 MG TAB PO SCH (09:16)
--- NOTE | 2023-04-27 09:55 | Electrocardiogram Report ---
Test Reason : Blood Pressure : / mmHG Vent. Rate : 077 BPM Atrial Rate : 077 BPM P-R Int : 150 ms QRS Dur : 076 ms QT Int : 332 ms P-R-T Axes : 084 -42 117 degrees QTc Int : 375 ms Normal sinus rhythm Left atrial enlargement Left anterior fascicular block Possible Old Septal infarct (cited on or before 26-APR-2023) Nonspecific T wave abnormality Anterior leads Abnormal ECG When compared with ECG of 26-APR-2023 09:41, ST no longer depressed in Inferior leads QT has shortened Confirmed by Alex Garzon ([id number]) on 04/27/2023 9:55:12 AM Referred By: REFERRED SELF Confirmed By:Alex Garzon
--- NOTE | 2023-04-27 17:07 | Cardiology Progress Note ---
Date of Service April 27, 2023 Assessment & Plan (1) Takotsubo cardiomyopathy: Plan: Almost certainly this was triggered by the extreme stress of the event during which she was slumped over for 9 hours. Her blood pressure is at target but sometimes a bit low. Does not seem like she has any symptoms with this. Her heart rate is slightly above target. For now, continue metoprolol tartrate 12.5 mg p.o. twice daily. If she can maintain this I would switch her to Toprol XL 25 mg daily prior to discharge. It is unlikely that we would be able to add NURIS inhibitor/angiotensin receptor yeyo at this time. We could consider additional adjuvant heart failure regimen such as an SGLT2 inhibitor. However, she was fairly dehydrated and I would not want to start that just yet. Similarly, spironolactone could be used but for the same reasons I would not initiate at this time. However, it may be helpful if she perpetually runs low potassium. Hopefully, time and what ever medications she can tolerate will be adequate to improve her EF. (2) Muscular dystrophy: Plan: I have significant concerns about the patient's living situation. Particularly since her son is employed and needs to work leaving her alone for the workday. While her neighbors may be helpful at times they certainly cannot provide [id number] observation or at least frequent stops to check on her. Therefore, I will consult case management regarding initiation of home health services that the patient may qualify for and which would be helpful in reducing the likelihood of recurrence of her recent episode. (3) Rhabdomyolysis: Plan: Essentially her episode was a prolonged downtime and unsurprisingly she had rhabdomyolysis, dehydration, and acute kidney injury. Although her EF is reduced gentle IV fluid resuscitation should be tolerated and will improve her kidney function, help flush her kidneys, and improve her blood pressure. Treatment per primary team. Plan Once the patient is euvolemic and we have set up adequate support for discharge then she would be appropriate from a cardiovascular standpoint to return home. I would like to see her within 1 to 2 weeks of discharge as she will need to be followed regularly for her cardiomyopathy. Admission and Anticipated Discharge Date Admission Date: April 26, 2023 Subjective Patient tells me she is feeling better at this time. Chest pain has resolved. She does have occasional sharp limited chest pain with deep inspiration. She notes that the feeling in her legs and movement is improving but still not back to baseline. She denies any pain or tenderness at the right groin access site. No shortness of breath. She voices no other complaints or concerns at this time. We discussed her baseline disabilities. We also discussed her home situation where she is alone while her son is working. She never had an episode such as a 1 preceding this admission prior to last week. She states that she does have some neighbors and friends that can come by and check on her but she does not receive any continuous care in the house and her son needs to work. We discussed potential for some level of home health care and she is interested in at least initiating that process as she noticed can take a long time and that she is unlikely to improve over time secondary to the muscular dystrophy. Review of Systems Review of Systems: Negative except as per HPI Physical Exam Constitutional: Middle-aged elderly female in no acute distress. Eyes: Extraocular muscles intact. Sclera are anicteric. ENMT: Oral mucosa is pink moist and intact Neck: No JVD or thyromegaly Respiratory: Clear to auscultation bilaterally. No wheezing, rhonchi, or rales. Cardiovascular: Regular rate and rhythm. S4 gallop. No rubs or murmurs appreciated. 2+ distal pulses. Musculoskeletal: Flaccid extremities. Trace bilateral foot edema. Right groin without mass or bruits Neurologic: Cognition is intact. Speech is fluent. Severe generalized weakness. Psychiatric: A+Ox3, euthymic affect (Anxious) Results & Data Vital Signs (Past 12 Hours) Vital Signs Temp Pulse Resp BP Pulse Ox O2 Del Method 04/27/23 15:12 89 04/27/23 13:00 91 H 21 96/58 L 94 04/27/23 12:45 36.8 C 04/27/23 12:00 89 16 136/85 92 04/27/23 11:00 79 22 120/78 93 04/27/23 10:00 80 17 117/69 04/27/23 09:00 89 23 86/62 L 95 04/27/23 08:00 89 04/27/23 08:00 88 20 95/67 L 04/27/23 08:00 Room Air 04/27/23 08:00 37 C 04/27/23 07:00 79 20 97 04/27/23 07:00 92/66 L 04/27/23 06:00 88/68 L 04/27/23 06:00 81 17 95 PG Care Time/CCT Total # of Minutes Spent Total Time Spent with Patient: Total time spent is greater than 50% in coordination of care (as documented) at patient's floor/unit and/or counseling patient: Coding Level of Care Code 47361 SUB INP/OBS CARE 2/35MIN Diagnoses Takotsubo cardiomyopathy I51.81 Muscular dystrophy G71.00 Rhabdomyolysis T79.6XXA Encounter type: initial encounter Rhabdomyolysis type: traumatic (3) Rhabdomyolysis Encounter type: initial encounter Rhabdomyolysis type: traumatic Qualified Code(s): T79.6XXA - Traumatic ischemia of muscle, initial encounter
--- NOTE | 2023-04-27 18:31 | Intensivist Progress Note ---
Date of Service April 27, 2023 Assessment & Plan (1) Takotsubo cardiomyopathy: (2) Rhabdomyolysis: (3) Leukocytosis: Plan 63 year old female wheel chair bound with muscular dystrophy presents with chest pain. Cardiac cath negative but showed depressed EF, suspect takotsubo which is attributed to the stress she had bending over in her wheel chair unable to sit up for a prolonged period of time. Managment per cardiology. OK to transfer to floor. Admission and Anticipated Discharge Date Admission Date: April 26, 2023 Physical Exam Constitutional: WD/WN, vitals as above Respiratory: normal respiratory effort Cardiovascular: Rate/Rhythm: regular rate and regular rhythm Gastrointestinal (Abdomen): Inspection/Auscultation: abdomen normal to inspection Neurologic: CN's II-XI intact bilaterally and awake Psychiatric: A+Ox3, euthymic affect Results & Data Results & Data Vital Signs (Past 12 Hours) Vital Signs Temp Pulse Resp BP Pulse Ox O2 Del Method 04/27/23 16:00 78 22 111/68 04/27/23 15:12 89 04/27/23 15:00 83 15 116/73 04/27/23 14:00 87 22 109/90 04/27/23 13:00 91 H 21 96/58 L 94 04/27/23 12:45 36.8 C 04/27/23 12:00 89 16 136/85 92 04/27/23 11:00 79 22 120/78 93 04/27/23 10:00 80 17 117/69 04/27/23 09:00 89 23 86/62 L 95 04/27/23 08:00 89 04/27/23 08:00 88 20 95/67 L 04/27/23 08:00 Room Air 04/27/23 08:00 37 C 04/27/23 07:00 79 20 97 04/27/23 07:00 92/66 L PG Care Time/CCT Total # of Minutes Spent Total Time Spent with Patient: Total time spent is greater than 50% in coordination of care (as documented) at patient's floor/unit and/or counseling patient: Coding Level of Care Code 79782 SUB INP/OBS CARE 2/35MIN Diagnoses Takotsubo cardiomyopathy I51.81 Non-traumatic rhabdomyolysis M62.82 Rhabdomyolysis type: non-traumatic Leukocytosis, unspecified type D72.829 Leukocytosis type: unspecified (2) Rhabdomyolysis Rhabdomyolysis type: non-traumatic Qualified Code(s): M62.82 - Rhabdomyolysis (3) Leukocytosis Leukocytosis type: unspecified Qualified Code(s): D72.829 - Elevated white blood cell count, unspecified
[2023-04-27] MEDS: METOPROLOL TARTRATE 25 MG TAB PO SCH (19:46)
[2023-04-28 04:21] LABS: Basophils # (auto) 0.02 K/uL (0.00-0.20); Basophils % (auto) 0.3 %; Eosinophils # (auto) 0.06 K/uL (0.00-0.50); Eosinophils % (auto) 0.8 %; Hematocrit (blood only) 36.8 % (37.0-47.0); Hemoglobin 12.2 g/dl (12.0-16.0); Immature Granulocytes # (auto) 0.03 K/uL (0.01-0.20); Immature Granulocytes % (auto) 0.4 %; Lymphocytes # (auto) 1.75 K/uL (1.20-3.40); Lymphocytes % (auto) 22.6 %; Mean Corpuscular Hemoglobin 29.8 pg (25.0-34.0); Mean Corpuscular Hgb Conc 33.2 g/dL (32.0-36.0); Monocytes # (auto) 0.74 K/uL (0.11-0.59); Monocytes % (auto) 9.5 %; Neutrophils # (auto) 5.15 K/uL (1.40-6.50); Neutrophils % (auto) 66.4 %; Platelet Count 114 K/uL (130-400); RDW Coefficient of Variation 12.7 % (11.5-14.5); RDW Standard Deviation 41.5 fL (36.4-46.3); Red Blood Count 4.09 M/uL (4.20-5.40); White Blood Count 7.75 K/ul (4.8-10.8)
[2023-04-28 04:38] LABS: BUN Creatinine Ratio 66.7 (10-20); Bilirubin,Total 0.6 mg/dl (0.2-1.0); Calcium 8.6 mg/dl (8.6-10.3); Creatinine Clr Calc Pharmacy 175.5 ml/min; Est GFR (African American) 139.3 ml/min; Est GFR (Non-African American) 120.2 ml/min; Potassium 4.2 mmol/L (3.5-5.1)
[2023-04-28] MEDS: ASPIRIN 81 MG ECTAB PO SCH (07:30)
[2023-04-28] MEDS: METOPROLOL TARTRATE 25 MG TAB PO SCH (07:30)
--- NOTE | 2023-04-28 08:38 | Electrocardiogram Report ---
Test Reason : Blood Pressure : / mmHG Vent. Rate : 078 BPM Atrial Rate : 078 BPM P-R Int : 144 ms QRS Dur : 078 ms QT Int : 378 ms P-R-T Axes : 082 028 108 degrees QTc Int : 430 ms Poor data quality, interpretation may be adversely affected Normal sinus rhythm Left atrial enlargement Nonspecific T wave abnormality Anterolateral leads Abnormal ECG When compared with ECG of 27-APR-2023 06:53, Left anterior fascicular block no longer present Criteria for Septal infarct no longer present Confirmed by Alex Garzon ([id number]) on 04/28/2023 8:38:13 AM Referred By: REFERRED SELF Confirmed By:Alex Garzon
--- NOTE | 2023-04-28 11:43 | Discharge Summary ---
Discharge Summary Date of Service April 28, 2023 Notes For Next Care Provider Medication Changes From Visit Added Toprol XL 25mg po hs STOP ibuprofen given increased risk pf cardiac issues Admission HPI Per Admitting Provider Trinity is a 63-year-old female with PMH of muscular dystrophy, paraplegia, sleep disorder, s/p ureteral stent placement, and nephrolithiasis. She pre sented as a heart alert on the morning of 04/26. She reportedly fell forward in her wheelchair yesterday and remained "bent in half" for approximately 9 hours from 1332 to 2000. Patient is wheelchair-bound at baseline. She lives with her son (Shaan) who helps take care of her. She developed chest pain and tightness last night. No radiation down the arms. She also notes several episodes of na usea and "liquidy" vomiting; she is unsure if there was any blood in the vomit. She did not take any pain medication at home, but endorses occasionally taking Tylenol and aspirin 81 mg at bedtime for achiness and pains. She was given nitro via EMS en route this morning. EKG on arrival showed new ST depressions in the inferior leads. Patient was immediately taken to the [facility]. Per cardiac cath note, no interventions at the time. No at home oxygen use. No recent sick contacts. Patient is up-to-date on COVID and flu shots. Following cath, the patient endorses bilateral constant neck pain which she rates 3/10. She does not endorse chest pain, but notes chest pressure and difficulty taking deep breaths. She also reports a new onset left leg numbness/tingling and intermittent sharp pains that radiate up from foot to knee. She reports that she twisted her LLE while falling forward yesterday in the wheelchair and might have banged her left ankle on the wheel. Mild tachycardia on arrival with peak at 108 bpm; vitals otherwise stable. ED course: Brilinta 180 mg, Nitrostat 0.4 mg, nitroglycerin/dextrose 2000 mcg, Versed 2 mg, heparin bolus, fentanyl, nicardipine 25 mg ROS: Patient endorses bilateral neck pain, chest pressure, N/V (resolved), diarrhea (on Tuesday 04/24), and new onset left leg numbness/tingling with intermittent sharp pain. Patient denies fever, headache, dizziness, lightheadedness, difficulty swallowing, cough, SOB, abdominal pain, saddle anesthesia, dysuria, burning with urination, or blood in the stool/urine. Social Hx: Patient denies smoking/alcohol use. Discussed code status with the patient: Patient does not have a living will or POA, but stated a desire to be DNI/DNR, and would like her son (Shaan) to be her medical proxy if she could not make a medical decision. Principal Dx & Hospital Course #1 = Principal Diagnosis (1) Takotsubo cardiomyopathy: Patient reportedly fell forward in her wheelchair, and was bent at the waist / slumped forward for 9 hours on 04/25 She was unable to sit back up d/t underlying muscular dystrophy She arrived in the ED with chest pain with several episodes of N/V Creatinine kinase 1639 and then trended downward Leukocytosis at 19.94 with a neutrophil predominance, urine cx with polymicrobial growth, leukocytosis resolved EKG on arrival concerning for V1-V3 elevations with reciprocal inferior lead depressions Patient was taken to the [facility] as a heart alert--> Per cardiac cath note: wall motion abnormalities consistent with Takotsubo cardiomyopathy and no obstruction/intervention Troponin 5964.0, [id number] and had improvement in serial ECGs QTc 540 on arrival and improved to normal lower blood pressure trying to initial metoprolol 04/27/23, but BPs stable prior to discharge on metoprolol tartrate 12.5mg po bid Transition to Toprol XL 25mg po hs on discharge since no CAD will not need atorvastatin can continue here ASA as needed at home but not necessary to take daily cannot add on ACEi or ARB now due to BPs, same situation with adding on SGLT2 f/u with Cardio in 2 weeks and will need repeat ECHO continue low sodium diet, fluid restriction (2) Chest pain: resolved, cath negative related to stress induced CM (3) Rhabdomyolysis: Slumped over x9 hours on 04/25 Total creatinine kinase 1639-849--> 600, received IVFs (4) Hypokalemia: resolved with repletion (5) Numbness and tingling of left lower extremity: New onset total numbness in BLE since 04/25 Neurovascularly intact on physical exam, with pulses intact in the DP/PT Tib/Fib & Ankle X-ray of LLE negative no clinical suspicion of compartment syndrome Suspect compression nerve injury from positioning during 9 hours, started feeling legs go numb while bent forward Improving prior to discharge--> less paresthesias, sensation now intact to light touch bilat throughout lower extremities except mildly diminished in right anterior thigh. No back pain, do not suspect spinal issue as cause. No bowel or bladder symptoms. Can move lower extremities but not quite as much as previously although she has not been out of bed to her wheelchair to attempt to move her legs in her wheelchair like she usually does Follow at home, should improve with time. 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 Acquired paraplegic; secondary to MD Plan DNR/DNI VTE PPx: SCDs Dispo-dc to home today with HH, discussed care with son and Cardiology Discharge Exam Constitutional WD/WN, vitals as above Respiratory normal respiratory effort, lungs clear to auscultation Cardiovascular RRR, no murmur, no edema Gastrointestinal (Abdomen) normal bowel sounds, soft, nontender, no hepatosplenomegaly Musculoskeletal Extremities: + abnormal strength (4/5 throughout LEs bilat) Neurologic Motor/Sensory: + sensory deficit (mild to light touch in right anterior thigh,otherwise normal); no tremor Updated Medication List Medication Instructions Recorded Confirmed Type wheelchair #1 ea 12/20/18 03/29/23 Rx aspirin 81 mg tablet,delayed 81 mg PO QAM PRN Palpitations 10/30/20 03/29/23 History release ibuprofen 200 mg tablet (Advil) 200 mg PO Q6H PRN fever/pain 12/11/20 03/29/23 History Shoulder Strap for Powered #1 ea 10/01/21 03/29/23 Rx Wheelchair Dx:G71.00; G82.20 miscellaneous medical supply #2 ea 06/29/22 03/29/23 Rx miscellaneous medical supply 1 ea miscellaneous ONCE g82.20, 02/03/23 03/29/23 Rx g71.00 #1 ea metoprolol succinate 25 mg 25 mg PO HS #30 tabs 04/28/23 Rx tablet,extended release 24 hr Hospital Stay Data Consultations 04/26/23 10:20 ED Decision to Admit Stat 04/26/23 16:01 Consult Human Resources Clerk Routine Procedures Performed Operation Date: 04/26/23 09:30 Actual Procedures s Cineradiography w/Routine Exam - Rubén Duron MD, PhD p Cath, Left with Cors and Vent - Rubén Duron MD, PhD Diagnostic Imagining Performed 04/26/23 09:36 CL Cath Imgs for PACS use only Routine ECHO Pending Results Patient Have Any Pending Studies at Discharge: No Discharge Instructions Given to Patient (Per Discharging Provider) You were admitted with a stress induced cardiomyopathy of the heart from the stress of being slumped over in your wheelchair. You also have compression injury to the nerves for your lower extremities but this is slowly improving. Please continue to take the metoprolol prescribed for your heart issue and follow up with the [facility]. This should improve with time. Your nerve compression injury will also take time to improve. If it is not, it would be good to follow up with Neurology as an outpatient. Call your Primary Care doctor if any of the following symptoms or problems start or get worse: * Shortness of breath or difficulty breathing * Wake up at night short of breath * Chest pain * Cough * Swelling of your hands, feet, or legs * More fatigued or tired with your normal activity * Palpitations - sudden fast heart beats WEIGHT * Weigh yourself every morning after using the bathroom. * Use the same scale. * Wear the same amount of clothing. * Write your weight down on a chart. * Call your Primary Care doctor if you gain more than 2-3 pounds in 1-2 days. MEDICATIONS * Use this discharge instruction sheet for medication instructions. * Take your medications at the time your doctor ordered. * Do not skip a dose of your medicines. * If you miss a dose of medicine, take it as soon as possible, but DO NOT DOUBLE A DOSE. * Read your medicine information when you get home. * Know all of the side effects of your medicine. If in doubt, ask your pharma cist * Call your Primary Care doctor's office if you have any side effects. * Be sure all of your doctors know what medicine and herbs you take (including cold, flu, and herbal medicine). Take the following with you to your follow-up doctor appointments: * Weight Chart * Medication List * List of questions Do not drink excessive alcohol, beer or wine. Total Time Total Time Spent Total Time Spent (In Minutes): 40 min Coding Level of Care Code 82407 INP/OBS DISCH >30 MIN Diagnoses Takotsubo cardiomyopathy I51.81 Chest pain R07.9 Non-traumatic rhabdomyolysis M62.82 Rhabdomyolysis type: non-traumatic Hypokalemia E87.6 Numbness and tingling of left lower extremity R20.0; R20.2 Muscular dystrophy G71.00
[2023-04-28] MEDS ORDERED: METOPROLOL SUCC 25MG EXT REL TAB PO SCH (21:00)
== END 2023-04-28 22:01 | disposition home health service (06) | DRG 287 ==
LOC: ED 09:38 → OR 10:20 → 1E 10:20 → SUATTDRO 11:18